=== PATIENT | female | born 1970 | race Caucasian/White ===

== ENCOUNTER → 2018-05-15 13:45 | Outpatient (CLI) | payer SELFPAY ==
--- NOTE | 2018-05-15 13:30 | EMB_PTH ---
PATIENT: BLANCA BURDEN LOC: [facility] U#:[id number] AGE/SX: 55/F ROOM: RE05/15/[address]: Dr. Nader Finley MD : 1970 BED: DIS: SPEC #: [id number] RECD: 05/15/18 13:54 STATUS: ALVARO CACERESMarcella #: [id number] DREW: 05/15/18 13:[address]: Nader Finley DEPT: SURGICAL PATHOLOGY RECD BY: Elsa Sam Tissues: Endometrium, NOS Procedures: Surgery Specimen Level IV HEADER OPERATION: Endometrial biopsy PRE-OP DIAGNOSIS: N92.0 TISSUE SUBMITTED: Endometrial biopsy MICROSCOPIC DIAGNOSIS Endometrial biopsy: Complex endometrial hyperplasia with minimal atypia. See comment. CANDIDA:miya 05/16/18 COMMENT Focal morular metaplasia is also noted. Clinical correlation and appropriate follow up are necessary. This case is discussed with Dr. Finley on 05/16/18. Case has been reviewed in consultation with Dr. Vang who concurs with the above diagnosis. IDC:AM MICROSCOPIC DESCRIPTION Slides are reviewed. GROSS DESCRIPTION Received in fixative is one container labeled with the patient's name and designated EMB. The specimen consists of multiple fragments of hemorrhagic soft tissue mixed with blood clot that in aggregate measure 5 x 3 x 0.3 cm. The entire specimen is submitted in two cassettes. / SJ:miya 05/15/18 TC:5 CPT: 03059
== END ==
PROVIDERS: Visit Provider Obstetrics & Gynecology
DX: N92.0 Excessive and frequent menstruation with regular cycle (principal)
CPT/HCPCS: 88305

== ENCOUNTER 2018-05-20 10:23 | Inpatient (IN) | payer SELFPAY ==
[2018-05-15 16:36] LABS: Hematocrit 37.3 % (37-47); Hemoglobin 12.9 g/dl (12.0-15.0); Mean Corp Hgb Conc 34.6 g/gl (32-36); Mean Corpuscular Volume 89.7 fL (81-99); Mean Platelet Vol. 10.2 fl (6.2-12.0); Platelet Count 311 K/mm3 (150-450); RBC Distribution Width SD 42.1 fl (35.1-43.9); Red Blood Count 4.16 M/mm3 (4.2-5.4); White Blood Count 9.3 K/mm3 (4.4-11.0)
[2018-05-15 16:41] LABS: Scan Indicated on CBC? Y/N NO
[2018-05-15 16:42] LABS: Prothrombin Time (Protime)PT. 13.5 SECONDS (11.7-14.9)
[2018-05-15 16:58] LABS: Partial Thromboplast Time 30.8 Seconds (24.1-36.2)
[2018-05-15 17:21] LABS: Creatinine, Serum 0.89 mg/dL (0.55-1.02); EST Glomerular Filtration Rate 72 mL/min (>60); Est Glom Filt Rate - Afr Amer 88 mL/min (>60)
--- NOTE | 2018-05-19 19:23 | HP.PCM_ITS ---
History and Physical Date of Admission: 05/20/18 Surgical History and Physical Judy Simpson, a 48 year old female 3 0 0 1 3, presents for ANUP/BS on May 20, 2018 at 12:15. -- Extremely Heavy Menses; Daily Bleeding for 1 Year; Complex EM Hyperplasia with minimal Atypia -- Judy presents here today with spouse(Nader) as referral from Dr. Christ Mckenzie for heavy bleeding with clots and cramping. 48 y.o. G 2 P 3 non-smoker with history in the last year of having some type of bleeding everyday, then would start with heavy flow, clots and cramping at times that she thinks is my period. Heavy Bleeding which began Started Saturday 05/12. Judy claims it started suddenly and has been present 4 months. It occurs with menses. It is located in the vagina.; It is located in the lower abdomen. Judy characterizes the quality cramping.; Judy characterizes the quality Clots, heavy flow. Severity is moderate and not improving; Associated signs and symptoms are has been bleeding for about a year almost daily. Additional comments are: Referred by Dr. Christ Mckenzie.; Additional comments are: u/s shows 9 cm submucous fibroid; EMBx pending. MEDICATIONS HISTORY: ALLERGIES: No Known Allergies Infections - Chicken pox and Measles Illnesses - no serious past illnesses Accidents - None Hospitalizations - see surgery Review of Systems: GENERAL - Denies fever, or chills SKIN - Denies skin changes EYES - Denies visual changes EARS - Denies difficulty hearing NOSE - Denies nasal congestion or bleeding MOUTH - Denies sore throat or difficulty swallowing NECK - Denies pain or swelling RESPIRATORY - Denies shortness of breath or wheezing CARDIOVASCULAR - Denies palpitations or chest pain GASTROINTESTINAL - Denies nausea, vomiting, diarrhea, constipation GENITOURINARY - Denies dysuria, frequency of urination, incontinence of urine MUSCULOSKELETAL - Denies joint or muscle pain NEUROLOGICAL - Denies localized numbness or weakness PSYCHIATRIC - Denies depression or anxiety ENDOCRINE - Denies heat or cold intolerance, weight loss or gain HEMATO-IMMUNOLOGIC - Denies excesive bleeding with cuts SOCIAL HISTORY: Alcohol Use - None Smoking - Never Diet - no special diet Lifestyle - moderate stress lifestyle and Exercise - active work Seat Belt Use - occasional Employer - Financial Sales Professional Illicit Drug Use - None Sexual Activity - Spouse-Sig Other Name - Nader Simpson Spouse-Sig Other Occupation - Self-Employed --Draw Maker Children Name(s) - 3 children(including set of twins) Control - Natural Family Planning FAMILY HISTORY: MENSTRUAL HISTORY: LMP Known?- DefiniteAmount/Duration - excess amount, Regularity - Irregular, Frequency - variable days, LMP - 05/12/18, Age Onset Menarche - 17 PAST PREGNANCIES: Total Pregnancies - 2; Full Term Pregnancies - 3; Premature - 0; Abortions, Induced - 0; Abortions, Spontaneous - 0; Ectopics - 0; Multiple Births - 1; Living Children - 3 SURGICAL HISTORY: 1. 05/14/1993 ; Joel Simpson MD - 2. 11/13/1996 ; Joel Simpson MD - 3. 2002 (L) Foot Surgery ; Dr. Munguia - PHYSICAL EXAM BP- 158/94 Sitting, Right arm, large cuff Weight- 254.06888 lbs Height- 65 inch BMI:42.36 CONSTITUTIONAL - NAD, well nourished, and well developed SKIN - No rash, lesions, or ulcers HEENT - Normocephalic, PERRLA, EOMI NECK - No nodes, no nuchal rigidity and thyroid normal size and texture LYMPH NODES - Palpation of lymph nodes in neck and groins within normal limits LUNGS - CTA x2 without wheezes, crackles or rales CARDIAC - Regular rate and rhythm without rubs, murmurs, or gallops BREAST - No dominant masses, no tenderness, no axillary adenopathy, no nipple discharge, no skin changes ABDOMEN - Without hepatosplenomegaly, distention, masses, rebound, or guarding; normal bowel sounds; no hernias EXTREMITIES - No edema or calf tenderness NEUROLOGICAL - Cranial nerves II-XII grossly intact PSYCHIATRIC - A and O to time, place, person, mood and affect External Genitial Vagina - non-tender without lesions Urethra/Urethral Meatus - non-tender Bladder - non-tender Vagina - vaginal paula are pink and moist without loss of rugae and no evidence of atropy and blood in vagina Cervix - without cervical motion tenderness and has normal size and features without evident lesions Uterus - enlarged uterus 15 wks and greater Adnexa - clear without massess or tenderness ASSESSMENT/PLAN: 1. Menorrhagia and Submucous Leiomyoma Of Uterus; Complex EM Hyperplasia with minimal atypia U/S shows large submucous fibroid. Aygestin taper to curb bleeding. Discussed options for treatment and patient desires we proceed with ANUP/BS. Discussed RBAs and all questions answered.
[2018-05-20] VITALS (11 sets, daily range): BP systolic 92–137; BP diastolic 49–78; PULSE 57–86; RESP 16; TEMP 36.6–37.1; O2SAT 16–100; BMI 41.8
--- NOTE | 2018-05-20 | IMM_PTH ---
PATIENT: BLANCA BURDEN LOC: [facility] U#:[id number] AGE/SX: 48/F ROOM: [facility] [id number] RE05/20/[address]: Dr. Nader Finley MD : 1970 BED: 1 DIS: 05/22/2018 SPEC #: [id number] RECD: 05/23/18 14:03 STATUS: ALVARO REQ #: [id number] DREW: 05/20/18 00:[address]: Nader Finley DEPT: IMMUNOHISTOCHEMISTRY RECD BY: Elsa Sam ENTERED: 05/23/18 14:07 SP TYPE: IMMUNO OTHR DR: Dr. Christ Mckenzie MD Tissues: Uterus, NOS Procedures: MSH2 (add) MLH-1 (add) MSH6 (add) Anti-PMS2 (add) CA-125 (add) CEA (add) CK19 (add) CK20 (add) CK7 (add) CK8 (add) ARIANNA (add) KI-67 (add) P53 (add) CA (add) Vimentin (add) 34BE12 (add) Pankeratin (add) ER (initial) PHYSICIAN & [place] [phone] SPECIMEN INFORMATION: Tissue Source: B. Uterus, cervix, bilateral fallopian tubes, bilateral ovaries Clinical Info: Adenocarcinoma Specimen Number: [id number] CPT code: 11116, 33294 x17 METHODOLOGY: Deparaffinized sections of prefer/formalin-fixed tissue or PAP/DQ stained slides are incubated with monoclonal/polyclonal antibodies/oligonucleotide probes. Localization is made via biotin free immunoperoxidase method. Appropriate controls are performed and reacted as expected. Results on target cell population are indicated in the following table: RESULTS: ANTIBODY / CLONE RESULT Block B20 ER (6F11) positive, rare CA (1E2) positive AE1-3 (AE1/AE3/PCK26) positive CK7 (OV-TL12/30) negative CK8 (96hfkhB90) positive CK20 (KS20.8) negative 34BE12 (34BE12) positive, focal Vimentin (V9) positive, dim CK19 (A53-B/A2.26) positive Ki-67 (30-9) positive, low CEA (11-7/TF-3HB-1) negative ARIANNA (E29) positive P53 (DO-7) negative MLH1 (M1) positive MSH2 (25D12) positive, dim MSH6 (44) positive, variable PMS2 (WUL5050) positive CA125 (OC125) positive, focal These tests were developed and their performance characteristics determined by [facility]. They may not have been cleared or approved by the U.S. Food and Drug Administration. The FDA has determined that such clearance or approval is not necessary. INTERPRETATION: Uterus, hysterectomy: Endometrial adenocarcinoma, endometrioid type, FIGO grade I/III. Result of Microsatellite Instability Study: Negative (no loss of mismatch protein; no microsatellite instability detected). AM:miya 06/04/18 AM:miya 06/07/18 Case has been reviewed in consultation with Dr. Leavitt who concurs with the above diagnosis. IDC:SJ
--- NOTE | 2018-05-20 | IMM_PTH ---
PATIENT: BLANCA BURDEN LOC: MS2 U#:[id number] AGE/SX: 48/F [place] [facility] [id number] RE05/20/[address]: Dr. Nader Finley MD : 1970 BED: 1 DIS: 05/22/2018 SPEC #: [id number] RECD: 05/23/18 14:03 STATUS: ALVARO REQ #: [id number] DREW: 05/20/18 00:[address]: Nader Finley DEPT: IMMUNOHISTOCHEMISTRY RECD BY: Elsa Sam ENTERED: 05/23/18 14:07 SP TYPE: IMMUNO OTHR DR: Dr. Christ Mckenzie MD Tissues: Uterus, NOS Procedures: MSH2 (add) MLH-1 (add) MSH6 (add) Anti-PMS2 (add) CA-125 (add) CEA (add) CK19 (add) CK20 (add) CK7 (add) CK8 (add) ARIANNA (add) KI-67 (add) P53 (add) WI (add) Vimentin (add) 34BE12 (add) Pankeratin (add) ER (initial) PHYSICIAN & [place] [phone] SPECIMEN INFORMATION: Tissue Source: B. Uterus, cervix, bilateral fallopian tubes, bilateral ovaries Clinical Info: Adenocarcinoma Specimen Number: [id number] CPT code: 31357, 53530 x17 METHODOLOGY: Deparaffinized sections of prefer/formalin-fixed tissue or PAP/DQ stained slides are incubated with monoclonal/polyclonal antibodies/oligonucleotide probes. Localization is made via biotin free immunoperoxidase method. Appropriate controls are performed and reacted as expected. Results on target cell population are indicated in the following table: RESULTS: ANTIBODY / CLONE RESULT Block B20 ER (6F11) positive, rare WI (1E2) positive AE1-3 (AE1/AE3/PCK26) positive CK7 (OV-TL12/30) negative CK8 (88spxvQ30) positive CK20 (KS20.8) negative 34BE12 (34BE12) positive, focal Vimentin (V9) positive, dim CK19 (A53-B/A2.26) positive Ki-67 (30-9) positive, low CEA (11-7/TF-3HB-1) negative ARIANNA (E29) positive P53 (DO-7) negative MLH1 (M1) positive MSH2 (25D12) positive, dim MSH6 (44) positive, variable PMS2 (BJY2247) positive CA125 (OC125) positive, focal These tests were developed and their performance characteristics determined by [facility]. They may not have been cleared or approved by the U.S. Food and Drug Administration. The FDA has determined that such clearance or approval is not necessary. INTERPRETATION: Uterus, hysterectomy: Endometrial adenocarcinoma, endometrioid type, FIGO grade I/III. Result of Microsatellite Instability Study: Negative (no loss of mismatch protein; no microsatellite instability detected). Positive (loss of mismatch protein; microsatellite instability detected). Partial loss of MLH1, MSH2, MSH6 and PMS2. Complete loss of MLH1, MSH2, MSH6 and PMS2. AM:miya 06/04/18 Case has been reviewed in consultation with Dr. Leavitt who concurs with the above diagnosis. IDC:SJ
[2018-05-20 10:54] LABS: Internal QC Validated? YES +Cl - CLEAR BKGD; Pregnancy, Urine Negative Negative
[2018-05-20] MEDS: Acetaminophen 500 MG Tablet 1000 MG PO (11:11)
[2018-05-20] MEDS: Scopolamine 1mg/72hr Patch 1 PATCH TRANSDERM. (11:12)
[2018-05-20] MEDS: Gabapentin 600 MG Tablet PO (11:12)
[2018-05-20 11:30] LABS: Bedside Glucose 98 mg/dL (70-110)
[2018-05-20] MEDS: Ondansetron 4 MG/2 ML Vial IV ×2 (12:15→21:14)
--- NOTE | 2018-05-20 14:25 | PCM.OP.BLANK ---
Operative Report Date of Procedure: 05/20/18 Surgeon: Nader Finley MD, FACOG Seed Technician: WADE Rojas; WADE Saul Anesthesia: Andrea Wagnre CRNA Type of Anesthesia: General endotracheal Procedure: Total Abdominal Hysterectomy, Bilateral Salpingo-Oophorectomy Findings: 15 cm cm fibroid uterus with normal appearing fallopian tubes and ovaries; two 3 x 4 cm extra uterine polypoid structures protruding from the left posterior aspect of the cervix into the peritoneal cavity with frozen section diagnosis being endometrial polyps with hyperplasia; left ovary densely adhered the posterior aspect of uterus; powder olmos across the posterior aspect of the uterus suggestive of endometriosis; normal palpating aortic lymph nodes and normal abdomen otherwise. Indications: This is a 48-year-old patient who his been having problems with bleeding nearly every day for the last year. Endometrial biopsy recently showed complex endometrial hyperplasia with minimal atypia. Recent ultrasound also showed a 9 cm fibroid. Given this the patient desires that we proceed with the above procedure. She has been counseled regarding the risk and indications of this procedure including the possibility of bleeding, infection, and injury to surrounding structures such as bowel bladder. All questions were answered. Procedure: Patient was taken to the operating room where after induction of general anesthesia she was prepped and draped in the usual sterile fashion. A Walton catheter was placed. The abdomen was entered through a Pfannenstiel incision and peritoneal cavity was entered bluntly. We were unable to place a Fairplay retractor at this point. Infundibulopelvic ligaments were ligated x2 on the left and utero-ovarian vessels on the right. A bladder flap was developed and progressive bites were then taken down on either side of the uterine cervix ligating each pedicle with 0 Vicryl suture. Final bites across the vaginal cuff incorporated the uterosacral ligaments into the vaginal cuff using 0 Vicryl suture and two ybjlda-[id number] sutures were placed across the vaginal cuff. Vaginal cuff and pelvic sidewall pedicles were oversewn where necessary to achieve hemostasis. The right infundibulopelvic ligament was then ligated with 0 Vicryl suture x2. Peristalsis of the right ureter was noted. Pelvis was copiously irrigated removing all clot. Fairplay retractor was removed and rectus abdominis muscles were reapproximated in the midline with interrupted 0 Vicryl suture. 0 PDS strata fix was used to close the fascia in a running fashion and subcutaneous tissue was copiously irrigated with saline solution before closing with 3-0 Vicryl suture. 3-0 Monocryl suture was then used in running fashion to reapproximate skin edges area and Steri-Strips placed across the incision. Patient tolerated the procedure well was taken to recovery room in satisfactory condition; sponge instrument and needle counts were all reportedly correct. Estimated blood loss for the case was approximately 200 cc. Cefotan 2 g IV was given prior to beginning the operative procedure. There were no apparent complications of the surgery. Specimen to pathology was uterus and bilateral fallopian tubes and ovaries. Frozen section diagnosis showed extrauterine polyp with hyperplasia.
--- NOTE | 2018-05-20 14:28 | OP.PCM_ITS ---
Operative Report Date of Procedure: 05/20/18 Surgeon: Nader Finley MD, FACOG Chemist Internship: WADE Rojas; WADE Saul Anesthesia: Andrea Wagner CRNA Type of Anesthesia: General endotracheal Procedure: Total Abdominal Hysterectomy, Bilateral Salpingo-Oophorectomy Findings: 15 cm cm fibroid uterus with normal appearing fallopian tubes and ovaries; two 3 x 4 cm extra uterine polypoid structures protruding from the left posterior aspect of the cervix into the peritoneal cavity with frozen section diagnosis being endometrial polyps with hyperplasia; left ovary densely adhered the posterior aspect of uterus; powder olmos across the posterior aspect of the uterus suggestive of endometriosis; normal palpating aortic lymph nodes and normal abdomen otherwise. Indications: This is a 48-year-old patient who his been having problems with bleeding nearly every day for the last year. Endometrial biopsy recently showed complex endometrial hyperplasia with minimal atypia. Recent ultrasound also showed a 9 cm fibroid. Given this the patient desires that we proceed with the above procedure. She has been counseled regarding the risk and indications of this procedure including the possibility of bleeding, infection, and injury to surrounding structures such as bowel bladder. All questions were answered. Procedure: Patient was taken to the operating room where after induction of general anesthesia she was prepped and draped in the usual sterile fashion. A Walton catheter was placed. The abdomen was entered through a Pfannenstiel incision and peritoneal cavity was entered bluntly. We were unable to place a Hospers retractor at this point. Infundibulopelvic ligaments were ligated x2 on the left and utero- ovarian vessels on the right. A bladder flap was developed and progressive bites were then taken down on either side of the uterine cervix ligating each pedicle with 0 Vicryl suture. Final bites across the vaginal cuff incorporated the uterosacral ligaments into the vaginal cuff using 0 Vicryl suture and two prbgbx-[id number] sutures were placed across the vaginal cuff. Vaginal cuff and pelvic sidewall pedicles were oversewn where necessary to achieve hemostasis. The right infundibulopelvic ligament was then ligated with 0 Vicryl suture x2. Peristalsis of the right ureter was noted. Pelvis was copiously irrigated removing all clot. Hospers retractor was removed and rectus abdominis muscles were reapproximated in the midline with interrupted 0 Vicryl suture. 0 PDS strata fix was used to close the fascia in a running fashion and subcutaneous tissue was copiously irrigated with saline solution before closing with 3-0 Vicryl suture. 3-0 Monocryl suture was then used in running fashion to reapproximate skin edges area and Steri-Strips placed across the incision. Patient tolerated the procedure well was taken to recovery room in satisfactory condition; sponge instrument and needle counts were all reportedly correct. Estimated blood loss for the case was approximately 200 cc. Cefotan 2 g IV was given prior to beginning the operative procedure. There were no apparent com plications of the surgery. Specimen to pathology was uterus and bilateral fallopian tubes and ovaries. Frozen section diagnosis showed extrauterine polyp with hyperplasia.
--- NOTE | 2018-05-20 14:29 | DCINST_ITS ---
Discharge Diet: No Restrictions Discharge Activity: Return to Normal Activity - do what you feel comfortable, but do not over do it. You may climb stairs, just use caution and hold the railing., May Not Drive - for a few days or while taking narcotic pain medications., May Shower, May Take a Tub Bath May resume sexual activity in: 6 weeks - nothing in the vagina. Lifting Restrictions: 25 pounds for 6 weeks. Call your doctor if your incision/area has: Continuous Slow Oozing, Sudden Increased Bleeding, Increased Pain/ Swelling, Increased Redness, Foul Smelling Discharge Call your doctor if you observe: Fever of 101 or Higher, Inability to urinate, Inability to have a bowel movement, Using more than one pad per hour, - - Some vaginal bleeding may be noted for up to 4-8 weeks. Cleanse incision/area with: - - Let the soapy water run over your incision, rinse and pat dry. Additional Dressing/Incision Instructions:: The white strips (Steri Strips) on your incision will fall off on their own. Allergies/Adverse Reactions: Allergies No Known Allergies Allergy (Verified 05/16/18 12:48) Medications to take at Discharge Ferrous Sulfate [Iron] 325 mg PO DAILY 05/16/18 Multivitamin [Multiple Vitamins] 1 each PO DAILY 05/16/18 Norethindrone Acetate 10 mg PO DAILY 05/16/18 Docusate Sodium [Colace] 100 mg PO BID PRN PRN #60 cap 05/20/18 Estradiol 1 mg PO DAILY #100 tab 05/20/18 Oxycodone [Oxyir] 5 mg PO Q6H PRN PRN 7 Days #20 tab 05/20/18 The following prescriptions were given: Oxycodone [Oxyir] 5 mg PO Q6H PRN PRN 7 Days #20 tab PRN Reason: Severe Pain (-04/17) Docusate Sodium [Colace] 100 mg PO BID PRN PRN #60 cap PRN Reason: Constipation Estradiol 1 mg PO DAILY #100 tab Primary Care Physician: Christ Mckenzie [Primary Care Provider] - Test Results: Test results from this visit will be discussed in further detail at your follow- up appointment, if applicable. Please Follow Up With: Nader Finley MD - [phone] When: in 2 weeks, please call to make an appointment.
[2018-05-20] MEDS: Lidocaine/D5W 2,000 MG/250 ML IV.SOLN 34.23 MG IV (14:48)
--- NOTE | 2018-05-20 15:08 | HYST_PTH ---
PATIENT: BLANCA BURDEN LOC: MS2 U#:[id number] AGE/SX: 48/F ROOM: [facility] [place] RE05/20/[address]: Dr. Nader Finley MD : 1970 BED: 1 DIS: 05/22/2018 SPEC #: [id number] RECD: 05/20/18 15:12 STATUS: ALVARO JAHAIRA #: [id number] DREW: 05/20/18 15:[address]: Nader Finley DEPT: SURGICAL PATHOLOGY RECD BY: Elsa Sam ENTERED: 05/20/18 15:37 SP TYPE: HYSTERECT OTHR DR: Dr. Christ Mckenzie MD Tissues: A - Uterus, NOS B - Uterus, NOS Procedures: Frozen Section (charge) Frozen Section Add'l ([facility]) Surgery Specimen Level IV Surgery Specimen Level Frozen (no charge) HEADER OPERATION: Total abdominal hysterectomy, bilateral salpingo-oophorectomy PRE-OP DIAGNOSIS: Menorrhagia and submucous leiomyoma of uterus; complex EM hyperplasia with minimal atypia TISSUE SUBMITTED: A. Posterior uterine growth FS, B. Uterus, cervix, bilateral fallopian tubes, bilateral ovaries FROZEN SECTION DIAGNOSIS A. Posterior uterine growth, biopsy: Consistent with endometrial polyp with hyperplasia without atypia. SJ:cc 05/20/18 MICROSCOPIC DIAGNOSIS A. Posterior uterine growth, biopsy: Endometrial polyp with complex endometrial hyperplasia without atypia. B. Uterus, hysterectomy: Endometrial adenocarcinoma, endometrioid type, FIGO I, with myometrial invasion. AM:miya 06/04/18 COMMENT UTERINE CANCER SUMMARY: Specimen - uterine corpus Procedure - radical hysterectomy Lymph node sampling - not performed Specimen integrity - intact specimen Tumor site - involves entire endometrial surface. Tumor size - 12 x 9 x 2.5 cm Histologic type - endometrioid adenocarcinoma Histologic grade - FIGO grade I Myometrial invasion - present (>50% of myometrial invasion) Involvement of cervix - not involved Extent of involvement of other organs: Right ovary - not involved Left ovary - not involved Right fallopian tube - not involved Left fallopian tube - not involved Margins - uninvolved by invasive carcinoma. Lymph-Vascular invasion - not identified Lymph nodes - not submitted Periaortic lymph nodes - not submitted Additional pathologic findings - right and left ovary with serous cystadenofibromas. Ancillary studies - Immunohistochemistry ([id number]) PATHOLOGIC STAGE: pT1b Nx Mx The above summary is in compliance with [employer] [place] (CAP) Cancer Protocols Checklist and [place] [employer] on Cancer (AJCC), Staging Manual, 8th Ed. This case was seen in consultation with Dr. Cervantes of [employer]. Case has been reviewed in consultation with Dr. Leavitt who concurs with the above diagnosis. IDC:CANDIDA MICROSCOPIC DESCRIPTION Slides are reviewed. GROSS DESCRIPTION A. Received in fixative is one container labeled with the patient's name and designated posterior uterine growth. Received fresh for frozen section diagnosis is a triangular polypoid piece of couch pink tissue measuring 4.5 x 3 x 1 cm. Sections reveal focally cystic cut surfaces. No obvious well-defined mass is identified. Two sections are submitted for frozen section diagnosis. The entire specimen is submitted in five cassettes as follows: 1&2 - frozen section, 3 to 5 - rest of the specimen. SJ:wesley 05/20/18 B. Received in fixative is one container labeled with the patient's name and designated uterus, cervix and fallopian tubes. The specimen consists of a uterus with right and left fallopian tubes. The uterus with cervix measures 18 x 15 x 10 cm and weighs 953 gm. The ectocervix is unremarkable and the cervical os is oval in contour. The endocervical canal measures 5 cm in length and is grossly unremarkable. The entire endometrial surface is irregular, granular and friable and measures 12 x 9 cm. Serial sections through this friable surface reveals the process to continue into the myometrium (greater than 2/3 thickness of myometrial extension). The serosal aspect of the specimen is smooth and glistening. No disruption of the serosal surface is grossly identified. A small hole-like area is present in the fundus of the gland measuring 1 cm in greatest dimension. Serial sections through this hole do not reveal extension into the endometrial surface. The appearance of the involvement of endometrium and myometrium resembles a friable mass that is light couch-white in color. This process is located approximately 6.5 cm from the ectocervical margin. The right ovary is light couch, smooth and glistening and cystic and measures 4.8 x 3.5 x 2.6 cm. The adjacent fallopian tube measures 7 cm in length and 0.7 cm in average diameter and focally displays adhesion to the myometrium. The left crinkled ovary is partly cystic and measures 3.5 x 2.5 x 2.2 cm. The adjacent left fallopian tube measures 5.5 cm in length and 0.7 cm in average diameter. Serial sections of the right cystic ovary reveal clear fluid. The cyst wall averages 0.1 cm in thickness. The fimbrial ends of both fallopian tubes are grossly unremarkable and elongated fibrous tissue is attached to the serosal surface in its posterior portion measuring 5 x 0.5 x 0.5 cm and grossly resembles area of fibrous adhesion. The serosal surface of the uterus is inked. Fluoroscope Operator sections are submitted as follows: 1 - anterior cervix, 2 - posterior cervix, 3 through 6 - right ovary and fallopian tube, 7 through 9 - left fallopian tube and ovary, 10 through 15 - anterior endometrium/myometrium, 18 through 21 - posterior endometrium/myometrium. / AM:sp 05/22/18 TC:0 CPT: 30907, 65211, 71463, 39674
[2018-05-20] MEDS: Dextrose 5%-Lactated Ringers 1,000 ML 150 ML IV (20:02)
[2018-05-20] MEDS: Enoxaparin 30 MG/0.3 ML Syringe SC (20:02)
[2018-05-20] MEDS: HYDROmorphone 1 MG/ML Syringe IV (21:14)
--- NOTE | 2018-05-21 00:01 | NURSING ---
Pt c/o double vision. requesting to have scope patch removed. scope patched removed from behind left ear and thrown away in sharps container. will continue to monitor pt's double vision.
[2018-05-21] MEDS: 0.9% NaCl Peripheral Flush Adult/Peds IV ×5 (00:06→22:51)
[2018-05-21] MEDS: Ketorolac 30 MG/ML Syringe IV ×3 (00:06→12:54)
[2018-05-21] MEDS: Dextrose 5%-Lactated Ringers 1,000 ML 150 ML IV (02:19)
[2018-05-21 03:38] VITALS: BP 113/54; PULSE 75; RESP 18; TEMP 37.1; O2SAT 96
[2018-05-21 05:48] LABS: Hematocrit 29.8 % (37-47); Hemoglobin 9.8 g/dl (12.0-15.0); Mean Corp Hgb Conc 32.9 g/gl (32-36); Mean Corpuscular Hgb 30.8 pg (27.0-32.0); Mean Corpuscular Volume 93.7 fL (81-99); Mean Platelet Vol. 9.3 fl (6.2-12.0); Platelet Count 303 K/mm3 (150-450); RBC Distribution Width CV 14.1 % (11.6-14.6); RBC Distribution Width SD 45.6 fl (35.1-43.9); Red Blood Count 3.18 M/mm3 (4.2-5.4)
[2018-05-21 05:53] LABS: Scan Indicated on CBC? Y/N NO
[2018-05-21 06:23] LABS: Creatinine, Serum 0.86 mg/dL (0.55-1.02); EST Glomerular Filtration Rate 75 mL/min (>60); Est Glom Filt Rate - Afr Amer 91 mL/min (>60); Estimated Creatinine Clearance 72.77 ml/min
--- NOTE | 2018-05-21 08:33 | PCM.PN.OB ---
Subjective: Patient without complaints. Tolerating diet well. Minimal vaginal bleeding. Pain well controlled. Denies flatus. Reports history of superficial calf clot formation after in the past. - Physical Exam Vital Signs AF, VSS Temp Pulse Resp BP Pulse Ox 98.8 F 75 18 113/54 L 96 05/21/18 03:38 05/21/18 03:38 05/21/18 03:38 05/21/18 03:38 05/21/18 03:38 Oxygen Flow Rate (L/min) 3 Oxygen Delivery Method Room Air Weight: 251 lb 8.759 oz Body Mass Index (BMI) 41.8 Intake and Output for Last 24 Hours 05/19/18 05/20/18 05/21/18 23:59 23:59 23:59 Intake Total 2461 / 2461 1437 / 1437 Output Total 475 / 475 575 / 575 Balance 1985 862 / 862 Laboratory Tests Past 24 Hrs 05/20/18 05/21/18 05/21/18 10:46 05:10 05:10 WBC 8.0 RBC 3.18 L Hgb 9.8 L Hct 29.8 L MCV 93.7 MCH 30.8 MCHC 32.9 RDW 14.1 RDW Differential 45.6 H Plt Count 303 MPV 9.3 Creatinine 0.86 Estim Creat Clear Calc 72.77 Est GFR (MDRD) Af Amer 91 Est GFR (MDRD) Non-Af 75 Urine Test Negative POC Glucose 05/20/18 11:06 POC Glucose 98 Wound is clean, dry, intact. Good urine output. Hemoglobin okay. Creatinine okay. Medical Necessity - Tobacco Use Smoking Status: Never smoker Tobacco Use: Cigarettes Assessment/Plan Doing well postoperative day #1 status post ANUP/BSO. Will start prophylactic Lovenox until able to ambulate very well. Anticipate release to home tomorrow.
[2018-05-21 08:52] VITALS: BP 135/86; PULSE 66; RESP 18; TEMP 37.2; O2SAT 98
[2018-05-21] MEDS: Estrogens,Conj. 0.625 MG Tablet PO (08:59)
[2018-05-21] MEDS: Enoxaparin 30 MG/0.3 ML Syringe SC (09:11)
[2018-05-21 10:10] VITALS: O2SAT 96
--- NOTE | 2018-05-21 10:15 | CASEMGMT ---
RN TIFFANY Face to Face with patient for initial transition planning/care coordination assessment. RN CM introduced self and role at [facility]. Patient sitting in chair, alert and oriented, at bedside. Patient willing to participate in assessment and is able to answer all questions appropriately. Care providers, pharmacy, and demographics verified. Patient wishes to discharge home, denies need for home health at this time. Patient states she has no further needs or concerns at this time. CM to follow for discharge planning needs that may arise. PCP: Christ Mckenzie Specialists: None Preferred Pharmacy: [facility] Insurance: [employer] Prescription Benefit: None Living Will/HPOA: None LNOK: Living Arrangements: Patient lives with in 2 story home. Transportation: yes, tow car driver DME/HHC: None Disposition Plan: Patient to discharge home with family support and follow-up plans in place. Lesly SPENCE, RN, CM
[2018-05-21 13:55] VITALS: BP 132/73; PULSE 69; RESP 18; TEMP 36.9; O2SAT 94
[2018-05-21] MEDS: Ketorolac 10 MG Tablet PO ×2 (17:27→22:51)
[2018-05-21 19:27] VITALS: BP 141/65; PULSE 73; RESP 16; TEMP 37.2; O2SAT 95
[2018-05-21] MEDS: Ondansetron 4 MG/2 ML Vial IV (22:51)
[2018-05-22] MEDS: Acetaminophen 500 MG Tablet 1000 MG PO (02:01)
[2018-05-22 02:04] VITALS: BP 114/64; PULSE 74; RESP 18; TEMP 37.2; O2SAT 94
[2018-05-22] MEDS: Ketorolac 10 MG Tablet PO (05:58)
[2018-05-22 07:10] VITALS: O2SAT 91
[2018-05-22] MEDS: Estrogens,Conj. 0.625 MG Tablet PO (08:13)
[2018-05-22] MEDS: Enoxaparin 30 MG/0.3 ML Syringe SC (08:14)
[2018-05-22 08:15] VITALS: BP 124/65; PULSE 80; RESP 16; TEMP 36.6; O2SAT 97
--- NOTE | 2018-05-22 08:51 | PCM.PN.OB ---
Subjective: Patient without complaints. Tolerating diet well. Positive flatus. Ambulating very well. Ready to go home. - Physical Exam Vital Signs Temp Pulse Resp BP Pulse Ox 97.9 F 80 16 124/65 H 97 05/22/18 08:15 05/22/18 08:15 05/22/18 08:15 05/22/18 08:15 05/22/18 08:15 Oxygen Flow Rate (L/min) 2 Oxygen Delivery Method Room Air Weight: 251 lb 8.759 oz Body Mass Index (BMI) 41.8 Intake and Output for Last 24 Hours 05/20/18 05/21/18 05/22/18 23:59 23:59 23:59 Intake Total 2461 / 2461 3087 / 3087 500 / 500 Output Total 475 / 475 575 / 575 Balance 1985 / 1985 2512 / 2512 500 / 500 Wound is clean, dry, intact. Good urine output. Medical Necessity - Tobacco Use Smoking Status: Never smoker Tobacco Use: Cigarettes Assessment/Plan Doing well status post ANUP/BSO on postoperative day #2. Will release to home with routine instructions.
--- NOTE | 2018-05-22 09:05 | PCA ---
pt walking in the [place]
== END 2018-05-22 11:13 | disposition home or self-care (01) | DRG 743 ==
LOC: ACINP 10:27 → MS2 19:11
PROVIDERS: Anesthesiology; Admitting Provider Obstetrics & Gynecology; Family Provider Family Medicine; PCP Family Medicine; Referring Provider Obstetrics & Gynecology; Visit Provider Obstetrics & Gynecology
PROC: 0UT90ZZ Resection of Uterus, Open Approach (ICD-10-PCS; principal; 2018-05-20 11:55)
DX: D25.0 Submucous leiomyoma of uterus (principal); N92.0 Excessive and frequent menstruation with regular cycle
CPT/HCPCS: 36415; 81025; 82565; 82962; 85027; 85610; 85730; 86850; 86900; 88305; 88307; 88309; 88331; 88332; 88341; 88342; J7050; J7120; A4216; J0330; J2405

== ENCOUNTER → 2018-06-10 07:12 | Outpatient (CLI) | payer SELFPAY ==
--- NOTE | 2018-06-10 07:25 | CT_ITS ---
STUDY: CT ABDOMEN AND PELVIS WITH CONTRAST REASON FOR EXAM: Female, 48 years old. Endometrial cancer RADIATION DOSAGE (If Supplied By Facility): CTDIvol = ( 23.48 ) mGy, DLP = ( 3527.32 ) mGycm TECHNIQUE: Transaxial images were obtained from the dome of the diaphragm to the symphysis pubis without oral contrast. 100CC ml of Isovue 300 contrast was administered. Sagittal and coronal images were reconstructed. Individualized dose optimization techniques were used for this CT. COMPARISON: None. FINDINGS: The visualized lung bases are unremarkable. The visualized portions of the heart are within normal limits. Liver is fatty. There is NO discrete mass. There is cholelithiasis. There is NO evidence of cholecystitis or biliary ductal dilatation. Normal spleen. The pancreas is unremarkable. However, there is a mass along the head of the pancreas on the RIGHT extending into the giuliana hepatis superiorly measuring 6 x 3 x 4.2 centers. This demonstrates heterogeneous density and enhancement. This could be an exophytic pancreatic neoplasm or metastatic lymph node. Normal bilateral adrenal glands. There is a heterogeneously enhancing mass in the midpole of the RIGHT kidney measuring 6.5 x 4.5 x 4.3 cm. This is suspicious for malignancy. Normal left kidney. Normal visualized stomach. Normal small intestine. Normal colon. There is non-visualization of the appendix. Normal abdominal aorta. Normal inferior vena cava. 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 Tumor thrombosis is not excluded. Normal urinary bladder. There has been a hysterectomy. There is NO pelvic mass or fluid collection. Normal abdominal wall. Normal osseous structures. CT/Abdomen/Pelvis WITH Contrast IMPRESSION: There is cholelithiasis. There is NO evidence of cholecystitis or biliary ductal dilatation. There is a mass along the head of the pancreas on the RIGHT extending into the giuliana hepatis superiorly measuring 6 x 3 x 4.2 centers. This demonstrates heterogeneous density and enhancement. This could be an exophytic pancreatic neoplasm or metastatic lymph node. There is a heterogeneously enhancing mass in the midpole of the RIGHT kidney measuring 6.5 x 4.5 x 4.3 cm. This is suspicious for malignancy. There is NO acute bowel abnormality. 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 Tumor thrombosis is not excluded. There has been a hysterectomy. There is NO pelvic mass or fluid collection. Electronically Signed: Brandin Hung MD at 6:26 EST , Service support ,
--- NOTE | 2018-06-10 07:25 | CT_ITS ---
STUDY: CT CHEST WITH CONTRAST REASON FOR EXAM: Female, 48 years old. Endometrial cancer RADIATION DOSAGE (If Supplied By Facility): CTDIvol = ( 23.48 ) mGy, DLP = ( 3527.32 ) mGycm TECHNIQUE: Transaxial imaging was performed following intravenous administration of 100CC ml of Isovue 300 contrast material. Individualized dose optimization techniques were used for this CT. COMPARISON: None. FINDINGS: The heart size is normal. There is NO pericardial effusion. There is NO mediastinal or hilar lymphadenopathy. There are filling defects in the LEFT basilar pulmonary artery branches suggesting chronic pulmonary embolism. NO acute occlusive thrombosis is seen. There is NO saddle embolus. The thoracic aorta is normal in caliber. There is NO aneurysm or dissection. The lungs are expanded. There are fibrotic changes at the LEFT lung base. There are NO infiltrates, effusions or pneumothoraces. NO discrete pulmonary nodules or masses are seen. The thoracic spine, sternum and ribs are intact. CT/Chest WITH Contrast IMPRESSION: The heart size is normal. There are filling defects in the LEFT basilar pulmonary artery branches suggesting chronic pulmonary embolism. NO acute occlusive thrombosis is seen. There is NO saddle embolus. The thoracic aorta is normal in caliber. There are fibrotic changes at the LEFT lung base. There are NO infiltrates, effusions or pneumothoraces. NO discrete pulmonary nodules or masses are seen. Electronically Signed: Brandin Hung MD at 7:11 EST , Service support ,
--- OUTSIDE RECORDS SUMMARY | 2018-08-03 05:57 | XMS RPT_ITS ---
:1970 Author Organization OHIP Care Team Providers Name Role Phone Rina Finley Attending Unavailable Rina Finley Admitting Unavailable Rina Finley Attending Unavailable Rina Finley Referring Unavailable Christ Mckenzie [facility] Unavailable Vickey Fisher Attending Unavailable Vickey Fisher Referring Unavailable Christ Mckenzie [facility] Unavailable Christ cMkenzie [facility] Unavailable Rodger Milligan Admitting Unavailable Rodger Milligan Attending Unavailable Harvey Mckenzie D[employer] Consulting Unavailable Rodger Milligan Admitting Unavailable Harvey Mckenzie D.O. Attending Unavailable Christ Mckenzie [facility] Care Unavailable Harvey Mckenzie D.O. Consulting Unavailable Rodger Milligan Consulting Unavailable Rodger Milligan Admitting Unavailable Rodger Milligan Attending Unavailable Christ Mckenzie [facility] Unavailable Harvey Mckenzie D.O. Consulting Unavailable Rodger Milligan Consulting Unavailable Rodger Milligan Admitting Unavailable Harvey Mckenzie D.O. Attending Unavailable Christ Mckenzie Primary [facility] Unavailable Harvey Mckenzie D.O. Consulting Unavailable Rodger Milligan Consulting Unavailable Rodger Milligan Admitting Unavailable Rodger Milligan Attending Unavailable Christ Mckenzie Primary Care Unavailable Harvey Mckenzie D.O. Consulting Unavailable Rodger Milligan Consulting Unavailable PROBLEMS PROBLEMS DATE TYPE CONDITION / CODE ATTENDING STATUS SOURCE 06/10/2018 Unknown C54.1 - Malignant Sudheer Fisher [facility] neoplasm of [facility] endometrium / Hospital C54.1(ICD-10) Repository 05/22/2018 Unknown G89.18 - Other acute Rina Finley Active [facility] postprocedural pain Community / G89.18(ICD-10) Hospital Repository 05/15/2018 Unknown N92.0 - Excessive Rina Finley Active [place] and frequent [facility] menstruation with Hospital regular cycle / Repository N92.0(ICD-10) PROCEDURES PROCEDURES No Procedure Records FoundRESULTS RESULTS DISCHARGE SUMMARY Observed: 06/14/2018 Status: F Source: [place] 9:02 [facility] REPOSITORY [facility] Medical Records Department [address] [place] [address] Discharge Summary 06/14/18 0854 MR#: [id number] Acct: [id number] Name: BLANCA BURDEN Rep #: [id number] : 1970 48 From: Rodger Milligan DO PCP: Christ Mckenzie MD Status: DIS IN Y Location: [place] [address] Discharge Date and Diagnosis Date of Admission: 06/12/18 Date of Discharge: 06/13/18 - Primary Discharge Diagnosis #1 acute pulmonary embolus left basilar pulmonary artery branches- probably secondary to either existing uterine carcinoma or new primary undiagnosed carcinoma, e.g. renal, pancreas #2 right renal mass, mid abdominal mass in the vicinity of the pancreas-possibly renal cell cancer or less likely pancreatic cancer #3 recently diagnosed uterine cancer Hospital Course and Treatment Operations: None Procedures: - - CT-guided needle biopsy of abdominal mass Summary of Care Provided: The patient is a 48 year old F who was seen in the emergency room at [facility] after being directed there by her oncological gynecological surgeon. Patient had a hysterectomy performed approximately 3 weeks prior and this showed uterine cancer, she was referred to an oncological gynecological surgeon in [place] who ordered a chest CT and abdominal CT on the patient on 06/10/18. This resulted as showing a pulmonary embolism in the left pulmonary basilar pulmonary artery as well as an abnormality on the patient's CT of her abdomen showing a right renal mass and a mass around the head of the pancreas. Patient was admitted from the emergency room to PCU after being bolused with IV heparin, she was maintained on a heparin drip on PCU and seen by pulmonary medicine who recommended using Lovenox as an outpatient for treatment of the pulmonary embolus. Patient underwent a needle biopsy of her abdominal mass near the pancreas and then was placed on Lovenox on 06/13/18. On 06/13/18, patient was seen and examined: On examination she appeared in good health and spirits. Vital signs as documented. Skin warm and dry and without overt rashes. Neck without JVD. Lungs clear. Heart exam notable for regular rhythm, normal sounds and absence of murmurs, rubs or gallops. Abdomen unremarkable and without evidence of organomegaly, masses, or abdominal aortic enlargement. Extremities nonedematous. Neuro: Cranial nerves II through XII are grossly intact, no focal motor deficits were noted. Psych: Patient is alert and oriented x3, she does not appear anxious or depressed. On 06/13/18, patient was seen and examined and felt to be stable for discharge home, she was to follow-up with her gynecological surgeon here in [place] and her PCP. - Physical Exam Vital Signs Temp Pulse Resp BP Pulse Ox 98.8 F 77 16 138/78 H 95 06/13/18 13:02 06/13/18 13:02 06/13/18 13:02 06/13/18 13:02 06/13/18 13:02 Oxygen Delivery Method [6] Room Air Oxygen Delivery Method [5] Room Air Oxygen Delivery Method [4] Room Air Oxygen Delivery Method [3] Room Air Oxygen Delivery Method [2] Room Air Oxygen Delivery Method [1 ( Room Air Initial Baseline)] Oxygen Delivery Method Room Air Weight: 108.3 kg Body Mass Index (BMI) 39.7 Intake and Output for Last 24 Hours Intake Total 1237 / 1237 447 / 447 Balance 1237 / 1237 447 / 447 Discharge Activity: Return to Normal Activity Weight Bearing Status: Full weight bearing Home Medications: Medications to take at Discharge Acetaminophen [Tylenol Tablet] 650 mg PO Q6H PRN PRN tablet 06/13/18 Enoxaparin [Lovenox] 110 mg SUBCUT BID #60 syringe 06/13/18 Following Prescrptions Were Given to Patient: Enoxaparin [Lovenox] 110 mg SUBCUT BID #60 syringe Primary Care Physician: Christ Mckenzie [Primary Care Provider] - Please follow up with your Primary Care Physician in: next week Please Follow Up With: Rina Finley MD When: in 10 days if you have not heard from him by then Disposition: Home Minutes spent on discharge:: 32 Patient Condition:: Stable Medical Necessity - Tobacco Use Smoking Status: Never smoker Tobacco Use: Non-smoker Meaningful Use Info Meaningful Use Diagnoses (Choose all that apply): VTE - VTE Anticoag overlap given w/in hospital stay or rx'd at co?: No Pt receive overlap for 5 days?: No Reason overlap not ordered, prescribed, or given for 5 days: Treatment Not Indicated - Patient was placed on Lovenox Code Visit Inpatient E AND M: 59605 Disch Hosp 06/14/18 0902 <Electronically signed by Rodger Milligan DO> Date Rodger Milligan DO Cosigner Signature (if applicable): Date CC: Rodger Milligan DO; Christ Mckenzie MD Signed DISCHARGE INSTRUCTION Observed: 06/13/2018 Status: F Source: [place] 2:31 PM [facility] [place] [facility] Medical Records Department [address] [place] [address] Instructions for Home/Discharge Instructions 06/13/18 1429 MR#: [id number] Acct: [id number] Name: BERTRAMBLANCA Khalif Rep #: [id number] : 1970 48 From: Rodger Milligan DO PCP: Christ Mckenzie MD Status: ADM IN - Discharge Diagnoses Current Active Problems: Current Active and Chronic Problems Pulmonary embolism (Acute) You will use the following diet at home:: No restrictions Your food should be the consistency of: Regular Your liquids should be the consistency of: Regular/Thin Discharge Activity: Return to Normal Activity Weight Bearing Status: Full weight bearing Additional Instructions: avoid using ibuprofen or Alleve-use tylenol for pain Allergies/Adverse Reactions: Allergies No Known Allergies Allergy (Verified 06/12/18 09:37) Medications to take at Discharge Acetaminophen [Tylenol Tablet] 650 mg PO Q6H PRN PRN tablet 06/13/18 Enoxaparin [Lovenox] 110 mg SUBCUT BID #60 syringe 06/13/18 The following prescriptions were given: Enoxaparin [Lovenox] 110 mg SUBCUT BID #60 syringe Primary Care Physician: Chirst Mckenzie [Primary Care Provider] - Please follow up with your Primary Care Physician in: next week Test Results: Test results from this visit will be discussed in further detail at your follow-up appointment, if applicable. Please Follow Up With: Rina Finley MD When: in 10 days if you have not heard from him by then 06/13/18 1431 <Electronically signed by Rodger Milligan DO> Date Rodger Milligan DO CC: Harvey Mckenzie D.O.; Christ Mckenzie MD ASP RADIOLOGY (TISSUE) Observed: 06/13/2018 Status: F Source: [place] 9:55 AM [facility] [place] Patient: BLANCA BURDEN : 1970 (48/F) Acct Num: [id number] Phys: Rodger Milligan DO Unit Num: [id number] Loc: PCU [id number] Specimen: [id number] Received: 06/13/18 - 1047 Spec Type: ASP RAD TISSUES 1 TISSUES: Pancreas, NOS COMMENT The specimen is evaluated at the time of CT-guided biopsy by Dr. Leavitt. Immediate Evaluation = Negative for definite malignant cells. Immunohistochemistry ([id number]) supports the above diagnosis. Clinical correlation is suggested. Case has been reviewed in consultation with Dr. Leavitt who concurs with the above diagnosis. IDC:SJ GROSS DESCRIPTION Received in fixative is one container labeled with the patient's name and designated peripancreatic mass/lymph node, CT-guided core biopsy. The specimen consists of multiple elongated fragments of couch soft tissue that in aggregate measure 2 x 0.1 x 0.1 cm. The entire specimen is submitted in one cassette. One touch imprint is prepared at the time of core biopsy. / SJ:miya 06/13/18 TC:0 CPT: 04923 HEADER OPERATION: CT-guided biopsy, pancreatic mass PRE-OP DIAGNOSIS: Pancreatic mass TISSUE SUBMITTED: Pancreatic mass 18g core x3, peripancreatic lymph node MICROSCOPIC DESCRIPTION Slides are reviewed. MICROSCOPIC DIAGNOSIS Peripancreatic mass, CT-guided core biopsy: Neuroendocrine carcinoma. AM:miya 06/19/18 Signed Sacha Taj 06/19/18 <signature on file> Performed By: #### PASPIGT #### [facility] [address] [place], [address] PARTIAL THROMBOPLAST Collected: 06/13/2018 Status: F Source: [place] TIME 2:35 AM [facility] [place] TYPE CODE TESTS RESULT OUT OF REFERENCE UNITS RANGE LAB L300.4310 24.1-36.2 Seconds High PTT 58.4 Performed By: #### L300.4310 #### [facility] [address] [place], [address] BIOPSY/INJ OR NEEDLE Observed: 06/13/2018 Status: F Source: [place]AC[place] 12:02 AM [facility] [place] [facility] Imaging Services [address] [place] [address] Biopsy/Inj or Needle Placement MR#: [id number] Acct: [id number] Name: BLANCA BURDEN Rep #: [id number] : 1970 F 48 From: Marvin Isbell MD PCP: Christ Mckenzie MD Status: ADM IN Study: Biopsy/Inj or Needle Placement Date of Exam: 06/13/18 Exam# [id number] Ordering Dr: Rodger Milligan DO PROCEDURE: CT GUIDED biopsy of the soft tissue nodule in the peripancreatic region. DATE: June 13, 2018. INDICATION: Female, 48 years old. History of endometrial carcinoma. Right renal mass. Soft tissue mass adjacent to the pancreatic head. PHYSICIAN: Marvin Isbell M.D. RADIATION DOSAGE (If Supplied By Facility): CTDIvol = ( 18 ) mGy, DLP = ( 456.66 ) mGycm. Individualized dose optimization techniques were utilized. PROCEDURE: The risks, benefits, and alternatives to the procedure were explained to the patient. The specific risk of hemorrhage requiring further treatment or intervention was detailed and accepted. Follow-up instructions were discussed with the patient as well. Written informed consent was obtained. The patient was brought into the CT suite and placed in the supine position. . An appropriate entry site was identified. The overlying skin was prepped and draped in the usual sterile fashion. 1% lidocaine was administered subcutaneously for local anesthesia. Conscious sedation was performed. The patient received 3 mg of Versed and 75 mcg of fentanyl intravenously. Conscious sedation was started at 9:34 AM and terminated at 9:59 AM. The patient was independently monitored by the department nurse. Under CT guidance, a total of 3 passes were performed utilizing a 18 gauge core biopsy needle The specimens were then placed in upper fluid and transported to the laboratory for analysis. Hemostasis was obtained. The patient tolerated the procedure well without immediate complications. CT/Biopsy/Inj or Needle Placement IMPRESSION: Successful CT guided biopsy of the right peripancreatic mass, as described above. Electronically Signed: Marvin Isbell MD at 11:04 EST Tel [phone], Service support , CC: Rodger Milligan DO; Christ Mckenzie MD Electrical Tester: Signed IMMUNOHISTOCHEMISTRY Observed: 06/13/2018 Status: F Source: [place] 12:00 AM [facility] [place] Patient: BLANCA BURDEN : 1970 (48/F) Acct Num: [id number] Phys: Rodger Milligan DO Unit Num: [id number] Loc: [facility] [id number] Specimen: [id number] Received: 06/14/181330 Spec Type: IMMUNO TISSUES 1 TISSUES: Pancreas, NOS SPECIMEN INFORMATION: Tissue Source: Pancreatic mass, peripancreatic lymph node Clinical Info: Pancreatic mass Specimen Number: [id number] CPT code: 44173, 77010 x18 METHODOLOGY: Deparaffinized sections of prefer/formalin-fixed tissue or PAP/DQ stained slides are incubated with monoclonal/polyclonal antibodies/oligonucleotide probes. Localization is made via biotin free immunoperoxidase method. Appropriate controls are performed and reacted as expected. Results on target cell population are indicated in the following table: RESULTS: ANTIBODY / CLONE RESULT GATA3 (L50-823) negative AE1-3 (AE1/AE3/PCK26) positive CK7 (OV-TL12/30) positive, rare cells CK8 (94jspdR97) positive CK19 (A53-B/A2.26) positive CK20 (KS20.8) negative 34BE12 (34BE12) negative CEA (11-7/TF-3HB-1) negative TTF-1 (8G7G3/1) negative Napsin A (Rabbit Polyclonal) negative Thyro (2H11+6E1) negative P53 (DO-7) positive, occasional Vimentin (V9) negative CA125 (OC125) negative CD56 (123C3.D5) positive, dim Chromo (LK2H10) positive Synapto (polyclonal) positive NSE Neuron Specific Enolase positive Ki-67 (30-9) positive, low These tests were developed and their performance characteristics determined by [facility]. They may not have been cleared or approved by the U.S. Food and Drug Administration. The FDA has determined that such clearance or approval is not necessary. 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 AM:miya 06/19/18 PHYSICIAN AND INSTITUTION [place] [phone] Signed Sacha Taj 06/19/18 <signature on file> Performed By: #### PIMM #### [facility] [address] [place], [address] HISTORY AND PHYSICAL Observed: 06/12/2018 Status: F Source: [place] EXAM 8:47 PM [facility] [place] [facility] Medical Records Department [address] [place] [address] History and Physical 06/12/182032 MR#: [id number] Acct: [id number] Name: BLANCA BURDEN Rep #: [id number] : 1970 48 From: Rodger Milligan DO PCP: Christ Mckenzie MD Status: ADM IN Y Location: [place] [address] Problem List (1) Pulmonary embolism Status: Acute Qualifiers: Pulmonary embolism type: other Chronicity: acute Acute cor pulmonale presence: without acute cor pulmonale Qualified Code(s): I26.99 - Other pulmonary embolism without acute cor pulmonale History of Present Illness Date of Admission: 06/12/18 Chief Complaint: Acute pulmonary embolism The patient is a 48 year old F who was seen and examined today in the emergency room at [facility] after being instructed to go there by her oncological SAFETY CONSULTANT physician. Patient underwent a hysterectomy approximately 4 weeks ago, pathology revealed that she had uterine cancer. The surgery was done at [facility]. She had had a chest CT with contrast ordered as well as an abdominal CT with contrast ordered, these were performed on 06/10/18, and she was informed by her physician today that she had a pulmonary embolus and was told to go to the emergency room for evaluation. Patient denied any shortness of breath, chest pain, cough, sputum production, or hemoptysis. She also denied any lightheadedness or presyncopal/syncopal episodes. Results of the CT of the chest and abdomen revealed that the patient had a left-sided pulmonary embolus, she also had evidence of a mass on her right kidney as well as an area which appeared to be a neoplasm near the head of the pancreas and was probably a cluster of enlarged lymph nodes with neoplasm in that area. Her physician who I talked with by phone requested that the patient undergo biopsy of the pancreatic area mass and possibly a biopsy of the renal mass, he had also contacted the radiologist here at [facility] discussed the case and received approval that the patient would undergo this procedure here if the patient was admitted to the hospital. Lab obtained in the emergency room showed a slightly low white blood cell count 4.2, chemistry profile was unremarkable except for a glucose of 110, urinalysis was performed which showed +1 bacteria, 0-5 RBCs, 0-5 WBCs, and elevated leukocyte esterase at 25. At the time of my examination, patient was not tachycardic, her pulse ox on room air was 96%, she did not appear to be in any distress whatsoever. I talked with her and her in the emergency room and she agreed to be admitted here. I also talked with the emergency room physician Dr. Sauer about the case. Patient will be admitted to PCU with a diagnosis of acute pulmonary embolism and right renal and pancreatic area mass, she will be placed on IV heparin, seen by pulmonary medicine, and will undergo biopsy of the mass in the pancreatic area tomorrow. Past Medical History Allergies No Known Allergies Allergy (Verified 06/12/18 09:37) Home Medications: Ambulatory Orders Medication Instructions Recorded Norethindrone Acetate 10 mg PO DAILY 05/16/18 Aspirin [Aspirin, Baby] 81 mg PO DAILY@0800 06/12/18 Surgical History: hysterectomy, - - , left foot surgery Psychiatric History: No pertinent psych hx SAFETY CONSULTANT History: endometrial cancer Lives: Spouse/ Significant Other Smoking Status: Never smoker Tobacco Use: Non-smoker Alcohol: None Drugs: None - *Family History Paternal History Items: Diabetes Maternal History Items: No pertinent history Review of Systems Constitutional: Denies: Anorexia, Chills, Fever, Night Sweats, Malaise, Weakness, Weight Change, Fatigue Eyes: Denies: Blurred vision, Cataracts, Conjunctivae Inflammation, Double vision, Drainage HEENT: Denies: Difficulty Swallowing, Dysphasia, Ear Pain, Eye Pain, Head Aches, Hearing Changes, Nasal bleeding, Nasal Congestion Cardiovascular: Denies: Chest Pain, Claudication, Chest Pressure, Chest Tightness, Edema, Heaviness, Light Headedness, Palpitations Respiratory: Denies: Cough, Hemoptysis, Pleuritic Pain, Shortness of Breath, Shortness of breath at rest, Shortness of breath upon exertion, Sputum production, Wheezing Gastrointestinal: Denies: Abdominal Pain, Constipation, Diarrhea, Hematemesis, Hematochezia, Nausea, Melena, Vomiting Genitourinary: Denies: Dysuria, Frequency, Hematuria, Hesitancy, Incontinence, Nocturia, Urgency Musculoskeletal: Denies: Back Pain, Foot Pain, Hand Pain, Joint Pain, Joint stiffness, Joint swelling, Joint Tenderness, Leg Pain Skin: Denies: Dryness, Pruritis, Rash Neurological: Denies: Balance problems, Blurred vision, Double vision, Slurred speech, Difficulty swallowing, Focal weakness, Headaches, Incoordination, Numbness, Tingling Psychiatric: Denies: Anxiety, Depression, Homicidal Ideations, Suicidal Ideations Endocrine: Denies: Change in Body Habitus, Heat/ Cold Intolerance, Polydipsia, Polyuria Hematologic/ Lymphatic: Denies: Adenopathy, Anemia, Easy Bruising, Easy Bleeding, Petechiae, Purpura VTE Information - Inpt Only VTE Present on Admission: Yes VTE Mechan Device Prophylaxis: None VTE Pharm Prophylaxis ordered?: No Reason prophylaxis not ordered:: Treatment Not Indicated - Patient admitted with acute VTE Patient Problems: Active and Suspected Problems Pulmonary embolism (Acute) - Physical Exam General: Alert, Oriented x3, Cooperative, No apparent distress, Well developed, Well nourished HEENT: Atraumatic, PERRLA, EOMI, Normocephalic Neck: Supple, No JVD, Negative Carotid Bruits, No Nuchal Rigidity, Trachea Midline, Thyroid Normal Size and Texture Lungs: Clear to auscultation, Normal air movement, No rhonchi, No wheeze, No rales Cardiovascular: Regular rate, Regular Rhythm, Normal S1, Normal S2, No murmurs, No Ectopic Activity, PMI Normal, No rub noted, No Gallop Abdomen: Bowel Sounds Present, Soft, Non Tender, Non-Distended, No hernias noted Extremities: No clubbing, No cyanosis, No edema, Capillary Refill Less than 3 Seconds Skin: No rashes, No breakdown Musculoskeletal: No Tenderness to Palpation of Joints or Extremities Neurological: Cranial nerves II-XII grossly intact, Neuro grossly intact, Sensory exam intact to light touch and pain, Coordination normal Psych/Mental Status: Normal Affect, Appropriate, Alert and oriented to time, place, person, mood and affect Vital Signs Temp Pulse Resp BP Pulse Ox 98.7 F 81 18 124/72 H 97 06/12/18 20:10 06/12/18 20:10 06/12/18 20:10 06/12/18 20:10 06/12/18 20:16 Oxygen Delivery Method Room Air Weight: 108.3 kg Body Mass Index (BMI) 39.7 Intake and Output for Last 24 Hours Intake Total 600 / 600 Balance 600 / 600 Laboratory Tests Past 24 Hrs WBC 4.2 L WBC RBC Hgb Hct WBC RBC Hgb Hct MCV MCH MCHC RDW RDW Differential Assessment/Plan All Active Problems Pulmonary embolism (Acute) #1 acute pulmonary embolus left basilar pulmonary artery branches- probably secondary to either existing uterine carcinoma or new primary undiagnosed carcinoma, e.g. renal, pancreas-patient was admitted to PCU, she will be monitored on telemetry, she will be seen by pulmonary medicine, he will be placed on an IV heparin drip, she was given a loading dose of heparin in the emergency room. Patient's heparin drip will be stopped at 4 AM tomorrow morning and the patient will undergo a biopsy of the mass near her pancreas via CAT scan-in radiology. This will take place a proximally 9-10 AM. I discussed this plan with the radiologist today #2 right renal mass, mid abdominal mass in the vicinity of the pancreas-possibly renal cell cancer or less likely pancreatic cancer-again patient will undergo biopsy tomorrow morning #3 recently diagnosed uterine cancer-status post hysterectomy proximally 4 weeks Code Visit Inpatient E AND M: 36766 Init Hosp L3 06/12/182046 <Electronically signed by Rodger Milligan DO> Date Rodger Milligan DO Cosigner Signature: Date (if applicable) CC: Rodger Milligan DO; Christ Mckenzie MD Signed PARTIAL THROMBOPLAST Collected: 06/12/2018 Status: F Source: [place] TIME 6:40 PM [facility] [place] Order Comment: Comments: HEPAR[facility] DRIP TYPE CODE TESTS RESULT OUT OF REFERENCE UNITS RANGE LAB L300.4310 24.1-36.2 Seconds High alert PTT 128.9 Result Comment: CRITICAL VALUE VERIFIED. CALLED TO ALEIDA 06/12/181955 Alyssa Lemus. RESULTS READ BACK BY SAME . Performed By: #### L300.4310 #### [facility] [address] [place], [address] EMERGENCY DEPARTMENT Observed: 06/12/2018 Status: F Source: [place] SUMMARY 2:17 PM [facility] [place] [facility] Medical Records Department [address] [place] [address] Emergency Department Summary 06/12/18 0955 MR#: [id number] Acct: [id number] Name: BLANCA BURDEN Rep #: [id number] : 1970 48 From: James Freeman DO PCP: Christ Mckenzie MD Status: ADM IN - ER Visit Summary Date of Service: 06/12/18 Chief Complaint: Pulmonary embolism History of Present Illness: The patient is a 48 F who presents after having an outpatient CT scan done 2 days ago which showed a pulmonary embolism. Patient had a recent hysterectomy which showed uterine malignancy. Patient had an outpatient CT scan of the chest, abdomen, and pelvis which was recommended to be done by her gynecology oncologist. This showed a pulmonary embolism along with a mass on the head of the pancreas and a mass in the right kidney. Currently, the patient denies any symptoms. Patient denies any chest pain or shortness of breath. Patient denies any palpitations. Patient was referred to the emergency department for admission and further evaluation of her pancreatic and kidney masses as well as treatment of her pulmonary embolism. Physical Examination: Vital signs are stable. Patient is afebrile. Patient is in no acute distress. Oral mucosa is pink and moist. Neck is supple. Trachea is midline. There is no JVD noted. Heart was regular rate and rhythm. Lungs are clear and equal bilaterally. There is good respiratory effort noted. Abdomen is soft. Bowel sounds are normal. There is no tenderness. There is no guarding noted. Cranial nerves II through XII are intact. There are no focal motor or sensory deficits noted. The remaining physical exam is within normal limits. Test Results: CBC, comprehensive metabolic profile, PT with INR, and PTT were obtained and were all within normal limits. Emergency Department Course and Treatment: Case was discussed with the hospitalist. Patient will be admitted to the hospital here to the PCU. Patient and family understood and were agreeable with the plan. All questions were answered. Disposition: Admit to hospital Impression: 1. Pulmonary embolism 2. Pancreatic mass 3. Right renal mass This note was generated with FIZZA dictation software. It may contain incorrect words, spelling, and punctuation that were not noted in review of the chart prior to signing ED Disposition - Plan for ED Patient: Chief Complaint: Shortness of Breath Referrals: Christ Mckenzie [Primary Care Provider] - What to do if you have Problems For any increased pain, shortness of breath, bleeding, nausea or vomiting, chest pain, or any unexpected problems, contact your Primary Care Provider. Call [facility] ([phone]) or report to the closest Emergency Room. Call 911 if necessary. 06/12/18 1417 <Electronically signed by James Freeman DO> Date James Freeman DO Cosigner Signature (If Indicated): Date CC: Christ Mckenzie MD MISCELLANEOUS LAB Collected: 06/12/2018 Status: F Source: [place] PROCED[place] 12:55 PM [facility] [place] Order Comment: Comments: dRVVT (dilute Bam viper venom time) Test(s) Ordered: [id number] 2-blues frozen plasma TYPE CODE TESTS RESULT OUT OF RANGE REFERENCE UNITS LAB L801.1541 Normal [facility] [place] LAB TEST Result Comment: TEST RESULT LIMITS Dilute Bam's Viper Venom dRVVT 55.5 High sec 0.0 - 47.0 dRVVT Mix 45.7 sec 0.0 - 47.0 TESTING PERFORMED AT [facility]. ORIGINAL REPORT ON FILE IN LAB CONTAINS ADDITIONAL TEST SITE INFORMATION. Performed By: #### L801.1541 #### [facility] [address] [place], [address] PROTEIN C DEFIC. Collected: 06/12/2018 Status: F Source: [facility] 12:55 PM [facility] [place] TYPE CODE TESTS RESULT OUT OF RANGE REFERENCE UNITS LAB L3100.7310 60-150 % Normal PROTEIN C 144 Performed By: #### L3100.7275, L3100.7325, L3100.8410, L3300.0450, L3410.2000, L4500.2000, L4500.5000 #### [facility] (refer to report for specific site) refer to report for address and phone number PROTEIN C, FUNCTIONAL Collected: 06/12/2018 Status: F Source: [place] 12:55 PM [facility] [place] TYPE CODE TESTS RESULT OUT OF RANGE REFERENCE UNITS LAB L3100.7325 73-180 % Normal PROT C, 157 Funct Performed By: #### L3100.7275, L3100.7325, L3100.8410, L3300.0450, L3410.2000, L4500.2000, L4500.5000 #### [facility] (refer to report for specific site) refer to report for address and phone number ANTICARDIOLIPIN IGG, IGM Collected: 06/12/2018 Status: F Source: [place] 12:55 PM [facility] [place] TYPE CODE TESTS RESULT OUT OF RANGE REFERENCE UNITS LAB L3100.8420 0-14 GPL U/mL Normal ANTICARDIO IgG < 9 Result Comment: Negative: <15 Indeterminate: 15 - 20 Low-Med Positive: >20 - 80 High Positive: >80 LAB L3100.8425 0-12 MPL U/mL Normal ANTICARDIO IgM 9 Result Comment: Negative: <13 Indeterminate: 13 - 20 Low-Med Positive: >20 - 80 High Positive: >80 Performed By: #### L3100.7275, L3100.7325, L3100.8410, L3300.0450, L3410.2000, L4500.2000, L4500.5000 #### [facility] (refer to report for specific site) refer to report for address and phone number AT III [facility] / Collected: 06/12/2018 Status: F Source: [place] 12:55 PM [facility] [place] TYPE CODE TESTS RESULT OUT OF RANGE REFERENCE UNITS LAB L3300.0500 75-135 % Normal AT3 FUNCTION 119 Result Comment: Direct Xa inhibitor anticoagulants such as rivaroxaban, apixaban and edoxaban will lead to spuriously elevated antithrombin activity levels possibly masking a deficiency. LAB L3300.0540 72-124 % Normal AT3 AG, IMMUNOL 96 Result Comment: This test was developed and its performance characteristics determined by [facility]. It has not been cleared or approved by the Food and Drug Administration. Performed By: #### L3100.7275, L3100.7325, L3100.8410, L3300.0450, L3410.2000, L4500.2000, L4500.5000 #### [facility] (refer to report for specific site) refer to report for address and phone number BETA-2 GLYCOPROT IGG, Collected: 06/12/2018 Status: F Source: [place] 12:55 PM [facility] [place] TYPE CODE TESTS RESULT OUT OF RANGE REFERENCE UNITS LAB L3410.2100 0-20 Normal B2 GLYCO <9 I IGG Result Comment: Result Units: GPI IgG units The reference interval reflects a 3SD or 99th percentile interval, which is thought to represent a potentially clinically significant result in accordance with the International Consensus Statement on the classification criteria for definitive antiphospholipid syndrome (APS). J Thromb Haem 2006;4:295-306. LAB L3410.2200 0-25 Normal B2 GLYCO I IGA <9 Result Comment: Result Units: GPI IgA units The reference interval reflects a 3SD or 99th percentile interval, which is thought to represent a potentially clinically significant result in accordance with the International Consensus Statement on the classification criteria for definitive antiphospholipid syndrome (APS). J Thromb Haem 2006;4:295-306. LAB L3410.2300 0-32 Normal B2 GLYCO I IGM <9 Result Comment: Result Units: GPI IgM units The reference interval reflects a 3SD or 99th percentile interval, which is thought to represent a potentially clinically significant result in accordance with the International Consensus Statement on the classification criteria for definitive antiphospholipid syndrome (APS). J Thromb Haem 2006;4:295-306. Performed By: #### L3100.7275, L3100.7325, L3100.8410, L3300.0450, L3410.2000, L4500.2000, L4500.5000 #### [facility] (refer to report for specific site) refer to report for address and phone number FACTOR II, DNA Collected: 06/12/2018 Status: F Source: [place] ANALYS[facility] 12:55 PM [facility] [place] TYPE CODE TESTS RESULT OUT OF RANGE REFERENCE UNITS LAB L4500.2100 . Normal FACTOR Comment II,DNA Result Comment: NEGATIVE No mutation identified. Comment: A point mutation ([id number]) in the factor II (prothrombin) gene is the second most common cause of inherited thrombophilia. The incidence of this mutation in the [place] population is about 2% and in the population it is approximately 0.5%. This mutation is rare in the and population. Being heterozygous for a prothrombin mutation increases the risk for developing venous thrombosis about 2 to 3 times above the general population risk. Being homozygous for the prothrombin gene mutation increases the relative risk for venous thrombosis further, although it is not yet known how much further the risk is increased. In women heterozygous for the prothrombin gene mutation, the use of estrogen containing oral contraceptives increases the relative risk of venous thrombosis about 16 times and the risk of developing cerebral thrombosis is also significantly increased. In the prothrombin gene mutation increases risk for venous thrombosis and may increase risk for stillbirth, placental abruption, pre-eclampsia and growth restriction. If the patient possesses two or more congenital or acquired thrombophilic risk factors, the risk for thrombosis may rise to more than the sum of the risk ratios for the individual mutations. This assay detects only the prothrombin [id number] mutation and does not measure genetic abnormalities elsewhere in the genome. Other thrombotic risk factors may be pursued through systematic clinical laboratory analysis. These factors include the R506Q (Leiden) mutation in the Factor V gene, plasma homocysteine levels, as well as testing for deficiencies of antithrombin III, protein C and protein S. Genetic Counselors are available for health care providers to discuss results at [phone] ([phone]). Methodology: DNA analysis of the Factor II gene was performed by PCR amplification followed by restriction analysis. The diagnostic sensitivity is >99% for both. All the tests must be combined with clinical information for the most accurate interpretation. Molecular-based testing is highly accurate, but as in any laboratory test, diagnostic errors may occur. This test was developed and its performance characteristics determined by [facility]. It has not been cleared or approved by the Food and Drug Administration. Sulaimant SR, et al. Blood. 1996; 88:0263-3548. Alice EA. Circulation. 2004; 110:e15-e18. Ilya I, et al. Arterioscler Thromb Vasc Biol. 1999; 19:700-703. Sán[place], PhD, FAC Venus Walker, PhD, FAC Veronica Araya M.S., PhD, FAC Misty Wayne, PhD, FAC Clara Goodrich, PhD, FAC Joseph Narvaez, PhD, FAC Performed at: [address] [id number] Merchandise Pickup/Receiving Associate: Jan Ospina MD, Phone: [phone] Performed at: [address] [id number] Merchandise Pickup/Receiving Associate: Rene Lux PhD, Phone: [phone] Performed at: [address] [id number] Merchandise Pickup/Receiving Associate: Lonnie Laboy MD, Phone: [phone] Performed By: #### L3100.7275, L3100.7325, L3100.8410, L3300.0450, L3410.2000, L4500.2000, L4500.5000 #### [facility] (refer to report for specific site) refer to report for address and phone number FACT V LEIDEN Collected: 06/12/2018 Status: F Source: [place] MUTATION 12:55 PM [facility] [place] TYPE CODE TESTS RESULT OUT OF REFERENCE UNITS RANGE LAB L4500.5100 . High FACTOR V Comment LEIDEN Result Comment: RESULT: SINGLE R506Q MUTATION IDENTIFIED (HETEROZYGOTE) Factor V Leiden is a specific mutation (R506Q) in the factor V gene that is associated with an increased risk of venous thrombosis. Factor V Leiden is more resistant to inactivation by activated protein C. As a result, factor V persists in the circulation leading to a mild hypercoagulable state. Factor V Leiden has been reported in patients with deep vein thrombosis, pulmonary embolus, central retinal vein occulsion, cerebral sinus thrombosis, and hepatic vein thrombosis. The relative risk of venous thrombosis is increased approximately 4-8 fold in individuals who are heterozygous. About 3-8% of the general [place] and population are heterozygous. The risk of venous thrombosis increases exponentially in patients with more than one risk factor, including: age, surgery, oral contraceptive use, , elevated homocysteine levels, or a Factor II/prothrombin mutation (L55371G). Additionally, for individuals found to be heterozygous for the Factor V Leiden mutation, presence of a second mutation, Factor V R2, further increases the risk if venous thrombosis. Contact [facility] Customer Service at for further information on both the Factor II (Prothrombin) DNA Analysis, and Factor V R2 DNA Analysis tests. Genetic counselors are available for health care providers to discuss results at [phone]). Methodology: DNA analysis of the Factor V gene was performed by allele- specific PCR. The diagnostic sensitivity and specificity is >99% for both. Molecular-based testing is highly accurate, but as in any laboratory test, diagnostic errors may occur. All test results must be combined with clinical information for the most accurate interpretation. This test was developed and its performance characteristics determined by [facility]. It has not been cleared or approved by the Food and Drug Administration. References: Salvador Garcia (1996). Clin Lab Med 16:169-186. Sán[place], PhD, FACMG Venus Walker, PhD, FACMG Veronica Araya M.S., PhD, FACMG Misty Wayne, PhD, FACMG Clara Goodrich, PhD, FACMG Joseph Narvaez PhD, FAC Performed By: #### L3100.7275, L3100.7325, L3100.8410, L3300.0450, L3410.2000, L4500.2000, L4500.5000 #### [facility] (refer to report for specific site) refer to report for address and phone number CONSULTATION Observed: 06/12/2018 Status: F Source: [place] 12:48 PM [facility] [place] [facility] Medical Records Department [address] [place] [address] Consultation 06/12/18 1226 MR#: [id number] Acct: [id number] Name: BLANCA BURDEN Rep #: [id number] : 1970 48 From: Harvey Mckenzie DO PCP: Christ Mckenzie MD Status: ADM IN Y Location: [place] [address] Reason for Consult Date of Consultation: 06/12/18 Reason for Consultation: Pulmonary embolism History of Present Illness: The patient is a 48-year-old female, with a history as outlined below, who presented to the emergency department at the urging of an outside provider after abnormal chest and abdominal imaging was obtained 2 days ago. In mid May, the patient underwent a total abdominal hysterectomy with bilateral salpingo-oophorectomy, which revealed evidence of endometrial adenocarcinoma. The patient was subsequently referred to Dr. Vickey Fisher of Physical Education Department Chair oncology at [facility]. CT scan of the chest, abdomen and pelvis were subsequently ordered. Those imaging studies were completed on June 10 and revealed evidence of a left basilar pulmonary embolism, along with the pancreatic head mass. Therefore, the patient was referred back to the emergency department for further evaluation and treatment of her PE. The patient denies a history of prior venous thromboembolic disease. She currently denies any shortness of breath or chest pain. On presentation to the emergency department, the patient was noted to be afebrile, hemodynamically stable and maintaining appropriate oxygen saturations on room air. Initial laboratory evaluation was largely unremarkable. The case was discussed with Dr. Morales of radiology with regards to the need for percutaneous needle biopsy of the pancreatic head mass. There are currently tentative plans for the patient to undergo a biopsy sometime tomorrow. Therefore, the plan has been to start the patient on a continuous heparin infusion in the interim. We were asked to weigh in on the need for potential IVC filter placement. Past Medical History Allergies No Known Allergies Allergy (Verified 06/12/18 09:37) Home Medications: Ambulatory Orders Medication Instructions Recorded Norethindrone Acetate 10 mg PO DAILY 05/16/18 Aspirin [Aspirin, Baby] 81 mg PO DAILY@0800 06/12/18 Smoking Status: Never smoker Review of Systems Constitutional: Denies: Chills, Fever, Weight Change HEENT: Denies: Head Aches, Sinus Congestion, Sinus Drainage Cardiovascular: Denies: Chest Pain, Palpitations Respiratory: Denies: Cough, Shortness of breath at rest, Sputum production Gastrointestinal: Denies: Abdominal Pain, Nausea, Vomiting Genitourinary: Denies: Dysuria Musculoskeletal: Denies: Joint Pain, Joint Tenderness Skin: Denies: Rash, Wounds Neurological: Denies: Numbness, Tingling, Focal weakness Psychiatric: Denies: Anxiety, Depression, Homicidal Ideations, Suicidal Ideations Hematologic/ Lymphatic: Reports: Hx of blood clot Objective: The patient's most recent lab work, culture data and imaging studies have all been personally reviewed. - Physical Exam General: Alert, Oriented x3, Cooperative, No apparent distress HEENT: Atraumatic, PERRLA, Normocephalic Oral: Moist Mucosa, No Gingival or Mucosal Lesions/ Ulcerations Neck: Supple, No Nodes, Trachea Midline Lungs: Normal air movement, No rhonchi, No wheeze, No rales Cardiovascular: Regular rate, Regular Rhythm, Normal S1, Normal S2, No murmurs Abdomen: Bowel Sounds Present, Soft, Non Tender, Obese Extremities: No clubbing, No cyanosis, No edema Skin: No rashes, No breakdown Musculoskeletal: No Tenderness to Palpation of Joints or Extremities, No Muscle Wasting Lymphatic: No Cervical, Supraclavicular, or Inguinal Adenopathy Neurological: Cranial nerves II-XII grossly intact, Neuro grossly intact Psych/Mental Status: Alert and oriented to time, place, person, mood and affect Vital Signs Temp Pulse Resp BP Pulse Ox 36.4 C L 80 16 132/84 H 95 06/12/18 09:37 06/12/18 11:26 06/12/18 11:26 06/12/18 11:26 06/12/18 11:26 Oxygen Delivery Method Room Air Weight: 245 lb Body Mass Index (BMI) 40.7 Laboratory Tests Past 24 Hrs WBC 4.2 L RBC 4.25 Hgb 13.1 Hct 37.9 MCV 89.2 WBC RBC Hgb Hct MCV MCH MCHC RDW RDW Differential Assessment/Plan RECOMMENDATIONS: 1. Continue heparin drip in preparation for planned biopsy procedure tomorrow. 2. Send hypercoagulable workup prior to initiating anticoagulation. 3. Would favor transitioning to Lovenox once the patient's procedural workup has been completed. IMPRESSIONS: 1. Pulmonary embolism The patient was recently diagnosed with a pulmonary embolism in the setting of a newly diagnosed endometrial adenocarcinoma. She has yet to be started on an anticoagulation regimen. Given the need to obtain a tissue biopsy of the pancreatic mass noted on CT abdomen/pelvis, agree with starting a heparin infusion, while awaiting completion of the procedure. Would plan to send a hypercoagulable workup prior to the initiation of the patient's anticoagulation regimen. Would favor transitioning to Lovenox after the patient's procedure workup has been completed. There is no indication for IVC filter placement, as the patient does not have a contraindication to systemic anticoagulation. 2. Newly diagnosed endometrial adenocarcinoma/pancreatic head mass/adenopathy Tentative plans for the patient to undergo a percutaneous needle biopsy tomorrow in radiology. The patient's heparin will need to be placed on hold prior to the procedure accordingly. 3. Obesity Complicates care, management, recovery and prognosis. Weight loss through dietary modification and a graded exercise regimen is strongly encouraged. This note was generated with FIZZA dictation software. It may contain incorrect words, spelling, and punctuation that were not noted in checking the note before signing. Code Visit Inpatient E AND M: 79700 Init Hosp L2 06/12/18 1248 <Electronically signed by Harvey Mckenzie DO> Date Harvey Mckenzie DO Cosigner Signature (if applicable): Date CC: Harvey Mckenzie D.O.; Christ Mckenzie MD Signed CBC W/DIFF, AUTOMATED Collected: 06/12/2018 Status: F Source: [place] 10:00 AM [facility] [place] TYPE CODE TESTS RESULT OUT OF RANGE REFERENCE UNITS LAB L100.1000 4.4-11.0 K/mm3 Low WBC 4.2 LAB L100.1200 4.2-5.4 M/mm3 Normal RBC 4.25 LAB L100.1300 12.0-15.0 g/dl Normal HGB 13.1 LAB L100.1400 37-47 % Normal HCT 37.9 LAB L100.1500 81-99 fL Normal MCV 89.2 LAB L100.1600 27.0-32.0 pg Normal MCH 30.8 LAB L100.1700 32-36 g/gl Normal MCHC 34.6 LAB L100.1810 11.6-14.6 % Normal RDW CV 13.5 LAB L100.1820 35.1-43.9 fl Normal RDW SD 43.2 LAB L100.1900 150-450 K/mm3 Normal PLT 287 LAB L100.2000 6.2-12.0 fl Normal MPV 9.7 LAB L100.2100 47-70 % Normal NEUT% 50.1 LAB L100.2200 19-41 % Normal LY% 37.1 LAB L100.2300 0-10 % Normal MONO% 7.8 LAB L100.2400 0-5 % Normal EO% 4.5 LAB L100.2500 0-1 % Normal BASO% 0.5 LAB L100.2550 0.0-0.9 % Normal IM GRAN % 0.000 Result Comment: IG% - Immature Granulocytes (promyelocytes, myelocytes and metamyelocytes) > 1% indicates that a LEFT SHIFT is Present. LAB L100.2620 2.0-7.7 X10 3/uL Normal Absolute Neut 2.1 LAB L100.2720 0.83-4.51 X10 3/ul Normal Absolute Lymph 1.56 Performed By: #### L100.0100 #### [facility] [address] [facility] [place], [address] URINALYSIS, COMPLETE Collected: 06/12/2018 Status: F Source: [place] 10:00 AM [facility] [place] Order Comment: Order Date: 06/12/18 How was Urine Obtained? CLEAN CATCH TYPE CODE TESTS RESULT OUT OF RANGE REFERENCE UNITS LAB L400.3000 Yellow COLOR Normal Yellow LAB L400.3050 Clear Normal CLARITY Clear LAB L400.3200 Normal mg/dl Normal GLUCOSE, UR Normal LAB L400.3300 Negative mg/dL Normal BILIRUBIN URINE Negative LAB L400.3400 Negative mg/dl Normal KETONE UR Negative LAB L400.3465 1.002-1.030 Normal SP.GR. DIPSTX 1.010 LAB L400.3550 5.0 - 8.0 pH UR Normal 6.0 LAB L400.3600 Negative mg/dl PROT Normal DIPSTX Negative LAB L400.3700 Normal mg/dl Normal UROBILI Normal LAB L400.3750 Negative Normal NITRITE UR Negative LAB L400.3780 Negative /ul Normal OCCULT BLOOD-UR Negative LAB L400.3800 Negative /ul High LEUK 25 ESTERASE LAB L400.4050 0-5 /hpf WBC Normal 0-5 SEEN LAB L400.4100 0-5 /hpf Normal RBC-UA 0-5 SEEN LAB L400.4150 5-10 /hpf SQUAM Normal EPI 0-5 SEEN LAB L400.4300 None Seen /hpf 1+ Normal BACTERIA LAB L400.4350 <or=2+ /hpf 0 Normal MUCUS, URINE SEEN Performed By: #### L400.0001 #### [facility] [address] [place], [address] COMPREHENSIVE METABOLIC Collected: 06/12/2018 Status: F Source: [facility] 10:00 AM [facility] [place] TYPE CODE TESTS RESULT OUT OF RANGE REFERENCE UNITS LAB L501.0100 74-106 mg/dL High GLU 110 Result Comment: Fasting Glucose result from 100 to 125 mg/dL suggests IMPAIRED HOMEOSTASIS per A.D.A. criteria. Please note revised GLUCOSE reference range effective 2017. LAB L501.1000 7-18 mg/dL Normal BUN 8 LAB L501.1100 0.55-1.02 mg/dL Normal CREAT,SERUM 0.79 Result Comment: The validity of the calculated GFR AND GFRAA in patients over 70 years has not been determined. Clinical correlation is essential. LAB L501.1110 >60 mL/min Normal EST GFR 83 Result Comment: Non- GFR Calc LAB L501.1115 >60 mL/min Normal EST GFR - AA 101 Result Comment: GFR Calc LAB L501.1255 ml/min Normal Estimated CRCL 79.22 LAB L501.1300 10-20 RATIO Normal BUN/CRE 10.2 LAB L501.1500 6.4-8. g/dL Normal 2 T PROT 7.9 LAB L501.1800 3.2-5. g/dL Normal 0 ALB 4.1 LAB L501.1950 2.2-4. g/dL Normal 2 GLOB 3.8 LAB L501.2000 0.9-2. RATIO Normal 4 A/G 1.1 LAB L501.2200 8.5-10 mg/dL Normal .1 CA 9.1 LAB L501.4100 15-37 U/L Normal AST 27 LAB L501.4305 45-117 U/L Normal ALK P 52 LAB L501.4405 13-56 U/L Normal ALT 23 LAB L501.4600 0.20-1 mg/dL Normal .00 T BILI 0.40 LAB L501.5300 136-14 mmol/L Normal 5 NA 141 LAB L501.5600 3.5-5. mmol/L Normal 1 K 3.7 LAB L501.5900 98-107 mmol/L Normal CL 106 LAB L501.6100 21.0-3 mmol/L Normal 2.0 CO2 27.0 LAB L501.6200 5-15 Normal GAP 8 Performed By: #### L500.4050 #### [facility] [address] [place], [address] PROTHROMBIN TIME W/INR Collected: 06/12/2018 Status: F Source: [place] 10:00 AM [facility] [place] TYPE CODE TESTS RESULT OUT OF RANGE REFERENCE UNITS LAB L300.4150 11.7-14.9 SECONDS Normal PROTIME 13.0 LAB L300.4200 Normal INR 1.0 Performed By: #### L300.3900, L300.4310 #### [facility] [place], [address] PARTIAL THROMBOPLAST Collected: 06/12/2018 Status: F Source: [place] TIME 10:00 AM [facility] [place] TYPE CODE TESTS RESULT OUT OF RANGE REFERENCE UNITS LAB L300.4310 24.1-36.2 Seconds Normal PTT 29.7 Performed By: #### L300.3900, L300.4310 #### [facility] [address] [place], [address] ABDOMEN/PELVIS WITH Observed: 06/10/2018 Status: F Source: [place] CONTRAST 7:26 AM [facility] [place] [facility] Imaging Services [address] [place] [address] Abdomen/Pelvis WITH Contrast MR#: [id number] Acct: [id number] Name: BLANCA BURDEN Rep #: [id number] : 1970 F 48 From: Brandin Hung PCP: Christ Mckenzie MD Status: REG CLI Study: Abdomen/Pelvis WITH Contrast Date of Exam: 06/10/18 Exam# [id number] Ordering Dr: Vickey Fisher MD STUDY: CT ABDOMEN AND PELVIS WITH CONTRAST REASON FOR EXAM: Female, 48 years old. Endometrial cancer RADIATION DOSAGE (If Supplied By Facility): CTDIvol = ( 23.48 ) mGy, DLP = ( 3527.32 ) mGycm TECHNIQUE: Transaxial images were obtained from the dome of the diaphragm to the symphysis pubis without oral contrast. 100CC ml of Isovue 300 contrast was administered. Sagittal and coronal images were reconstructed. Individualized dose optimization techniques were used for this CT. COMPARISON: None. FINDINGS: The visualized lung bases are unremarkable. The visualized portions of the heart are within normal limits. Liver is fatty. There is NO discrete mass. There is cholelithiasis. There is NO evidence of cholecystitis or biliary ductal dilatation. Normal spleen. The pancreas is unremarkable. However, there is a mass along the head of the pancreas on the RIGHT extending into the giuliana hepatis superiorly measuring 6 x 3 x 4.2 centers. This demonstrates heterogeneous density and enhancement. This could be an exophytic pancreatic neoplasm or metastatic lymph node. Normal bilateral adrenal glands. There is a heterogeneously enhancing mass in the midpole of the RIGHT kidney measuring 6.5 x 4.5 x 4.3 cm. This is suspicious for malignancy. Normal left kidney. Normal visualized stomach. Normal small intestine. Normal colon. There is non-visualization of the appendix. Normal abdominal aorta. Normal inferior vena cava. 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 Tumor thrombosis is not excluded. Normal urinary bladder. There has been a hysterectomy. There is NO pelvic mass or fluid collection. Normal abdominal wall. Normal osseous structures. CT/Abdomen/Pelvis WITH Contrast IMPRESSION: There is cholelithiasis. There is NO evidence of cholecystitis or biliary ductal dilatation. There is a mass along the head of the pancreas on the RIGHT extending into the giuliana hepatis superiorly measuring 6 x 3 x 4.2 centers. This demonstrates heterogeneous density and enhancement. This could be an exophytic pancreatic neoplasm or metastatic lymph node. There is a heterogeneously enhancing mass in the midpole of the RIGHT kidney measuring 6.5 x 4.5 x 4.3 cm. This is suspicious for malignancy. There is NO acute bowel abnormality. 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 Tumor thrombosis is not excluded. There has been a hysterectomy. There is NO pelvic mass or fluid collection. Electronically Signed: Brandin Hung MD at 6:26 EST , Service support , CC: Christ Mckenzie MD; Vickey Fisher Electrical Tester: Signed CHEST WITH CONTRAST Observed: 06/10/2018 Status: F Source: [place] 7:26 AM [facility] Imaging Services [address] [place] [id number] Chest WITH Contrast MR#: [id number] Acct: [id number] Name: BLANCA BURDEN Rep #: [id number] : 1970 F 48 From: Brandin Hung PCP: Christ Mckenzie MD Status: REG CLI Study: Chest WITH Contrast Date of Exam: 06/10/18 Exam# [id number] Ordering Dr: Vickey Fisher MD STUDY: CT CHEST WITH CONTRAST REASON FOR EXAM: Female, 48 years old. Endometrial cancer RADIATION DOSAGE (If Supplied By Facility): CTDIvol = ( 23.48 ) mGy, DLP = ( 3527.32 ) mGycm TECHNIQUE: Transaxial imaging was performed following intravenous administration of 100CC ml of Isovue 300 contrast material. Individualized dose optimization techniques were used for this CT. COMPARISON: None. FINDINGS: The heart size is normal. There is NO pericardial effusion. There is NO mediastinal or hilar lymphadenopathy. There are filling defects in the LEFT basilar pulmonary artery branches suggesting chronic pulmonary embolism. NO acute occlusive thrombosis is seen. There is NO saddle embolus. The thoracic aorta is normal in caliber. There is NO aneurysm or dissection. The lungs are expanded. There are fibrotic changes at the LEFT lung base. There are NO infiltrates, effusions or pneumothoraces. NO discrete pulmonary nodules or masses are seen. The thoracic spine, sternum and ribs are intact. CT/Chest WITH Contrast IMPRESSION: The heart size is normal. There are filling defects in the LEFT basilar pulmonary artery branches suggesting chronic pulmonary embolism. NO acute occlusive thrombosis is seen. There is NO saddle embolus. The thoracic aorta is normal in caliber. There are fibrotic changes at the LEFT lung base. There are NO infiltrates, effusions or pneumothoraces. NO discrete pulmonary nodules or masses are seen. Electronically Signed: Brandin Hung MD at 7:11 EST , Service support , CC: Christ Mckenzie MD; Vickey Fisher Electrical Tester: Signed CBC-COMPLETE BLOOD CNT Collected: 05/21/2018 Status: F Source: [place] NO DIFF 5:10 AM [facility] [place] TYPE CODE TESTS RESULT OUT OF RANGE REFERENCE UNITS LAB L100.1000 4.4-11.0 K/mm3 Normal WBC 8.0 LAB L100.1200 4.2-5.4 M/mm3 Low RBC 3.18 LAB L100.1300 12.0-15.0 g/dl Low HGB 9.8 LAB L100.1400 37-47 % Low HCT 29.8 LAB L100.1500 81-99 fL Normal MCV 93.7 LAB L100.1600 27.0-32.0 pg Normal MCH 30.8 LAB L100.1700 32-36 g/gl Normal MCHC 32.9 LAB L100.1810 11.6-14.6 % Normal RDW CV 14.1 LAB L100.1820 35.1-43.9 fl High RDW SD 45.6 LAB L100.1900 150-450 K/mm3 Normal PLT 303 LAB L100.2000 6.2-12.0 fl Normal MPV 9.3 Performed By: #### L100.0500 #### [facility] [address] [place], [address] SERUM CREATININE AND Collected: 05/21/2018 Status: F Source: [place] GFR 5:10 AM [facility] TYPE CODE TESTS RESULT OUT OF RANGE REFERENCE UNITS LAB L501.1100 0.55-1.02 mg/dL Normal 0.86 CREAT,SERUM Result Comment: The validity of the calculated GFR AND GFRAA in patients over 70 years has not been determined. Clinical correlation is essential. LAB L501.1110 >60 mL/min Normal EST GFR 75 Result Comment: Non- GFR Calc LAB L501.1115 >60 mL/min Normal EST GFR - AA 91 Result Comment: GFR Calc LAB L501.1255 ml/min Normal Estimated CRCL 72.77 Performed By: #### L501.1105 #### [facility] [address] [place], [address] OPERATIVE REPORT Observed: 05/20/2018 Status: F Source: [place] 4:45 PM [facility] Medical Records Department [address] [place] [address] Operative Report 05/20/18 1425 MR#: [id number] Acct: [id number] Name: BLANCA BUDREN Rep #: [id number] : 1970 48 From: Rina Finley MD PCP: Christ Mckenzie md Status: ADM IN Location: [place] [id number] Operative Report Date of Procedure: 05/20/18 Surgeon: Rina Finley MD, FACOG Welfare Project Manager: WADE Rojas; WADE Saul Anesthesia: Andrea Wagner CRNA Type of Anesthesia: General endotracheal Procedure: Total Abdominal Hysterectomy, Bilateral Salpingo-Oophorectomy Findings: 15 cm cm fibroid uterus with normal appearing fallopian tubes and ovaries; two 3 x 4 cm extra uterine polypoid structures protruding from the left posterior aspect of the cervix into the peritoneal cavity with frozen section diagnosis being endometrial polyps with hyperplasia; left ovary densely adhered the posterior aspect of uterus; powder olmos across the posterior aspect of the uterus suggestive of endometriosis; normal palpating aortic lymph nodes and normal abdomen otherwise. Indications: This is a 48-year-old patient who his been having problems with bleeding nearly every day for the last year. Endometrial biopsy recently showed complex endometrial hyperplasia with minimal atypia. Recent ultrasound also showed a 9 cm fibroid. Given this the patient desires that we proceed with the above procedure. She has been counseled regarding the risk and indications of this procedure including the possibility of bleeding, infection, and injury to surrounding structures such as bowel bladder. All questions were answered. Procedure: Patient was taken to the operating room where after induction of general anesthesia she was prepped and draped in the usual sterile fashion. A Watlon catheter was placed. The abdomen was entered through a Pfannenstiel incision and peritoneal cavity was entered bluntly. We were unable to place a Hanover retractor at this point. Infundibulopelvic ligaments were ligated x2 on the left and utero-ovarian vessels on the right. A bladder flap was developed and progressive bites were then taken down on either side of the uterine cervix ligating each pedicle with 0 Vicryl suture. Final bites across the vaginal cuff incorporated the uterosacral ligaments into the vaginal cuff using 0 Vicryl suture and two aodbov-ax-htvol sutures were placed across the vaginal cuff. Vaginal cuff and pelvic sidewall pedicles were oversewn where necessary to achieve hemostasis. The right infundibulopelvic ligament was then ligated with 0 Vicryl suture x2. Peristalsis of the right ureter was noted. Pelvis was copiously irrigated removing all clot. Hanover retractor was removed and rectus abdominis muscles were reapproximated in the midline with interrupted 0 Vicryl suture. 0 PDS strata fix was used to close the fascia in a running fashion and subcutaneous tissue was copiously irrigated with saline solution before closing with 3-0 Vicryl suture. 3-0 Monocryl suture was then used in running fashion to reapproximate skin edges area and Steri-Strips placed across the incision. Patient tolerated the procedure well was taken to recovery room in satisfactory condition; sponge instrument and needle counts were all reportedly correct. Estimated blood loss for the case was approximately 200 cc. Cefotan 2 g IV was given prior to beginning the operative procedure. There were no apparent complications of the surgery. Specimen to pathology was uterus and bilateral fallopian tubes and ovaries. Frozen section diagnosis showed extrauterine polyp with hyperplasia. 05/20/18 1645 <Electronically signed by Rina Finley MD> Date Rina Finley MD CC: md Christ Mckenzie; Rina Finley MD Signed HYSTERECTOMY SPECIMEN Observed: 05/20/2018 Status: F Source: [place] 3:08 PM [facility] Patient: BLANCA BURDEN : 1970 (48/F) Acct Num: [id number] Phys: Rina Finley MD Unit Num: [id number] Loc: MS2 HP366-1 Specimen: [id number] Received: 05/20/181511 Spec Type: HYSTERECT TISSUES 1 TISSUES: A. Uterus, NOS B. Uterus, NOS COMMENT UTERINE CANCER SUMMARY: Specimen - uterine corpus Procedure - radical hysterectomy Lymph node sampling - not performed Specimen integrity - intact specimen Tumor site - involves entire endometrial surface. Tumor size - 12 x 9 x 2.5 cm Histologic type - endometrioid adenocarcinoma Histologic grade - FIGO grade I Myometrial invasion - present (>50% of myometrial invasion) Involvement of cervix - not involved Extent of involvement of other organs: Right ovary - not involved Left ovary - not involved Right fallopian tube - not involved Left fallopian tube - not involved Margins - uninvolved by invasive carcinoma. Lymph-Vascular invasion - not identified Lymph nodes - not submitted Periaortic lymph nodes - not submitted Additional pathologic findings - right and left ovary with serous cystadenofibromas. Ancillary studies - Immunohistochemistry ([id number]) PATHOLOGIC STAGE: pT1b Nx Mx The above summary is in compliance with [employer] [employer] (CAP) Cancer Protocols Checklist and [place] Joint Committee on Cancer (AJCC), Staging Manual, 8th Ed. This case was seen in consultation with Dr. Cervantes of [employer]. Case has been reviewed in consultation with Dr. Leavitt who concurs with the above diagnosis. IDC:SJ FROZEN SECTION DIAGNOSIS A. Posterior uterine growth, biopsy: Consistent with endometrial polyp with hyperplasia without atypia. SJ:cc 05/20/18 GROSS DESCRIPTION A. Received in fixative is one container labeled with the patient's name and designated posterior uterine growth. Received fresh for frozen section diagnosis is a triangular polypoid piece of couch pink tissue measuring 4.5 x 3 x 1 cm. Sections reveal focally cystic cut surfaces. No obvious well-defined mass is identified. Two sections are submitted for frozen section diagnosis. The entire specimen is submitted in five cassettes as follows: 1 AND 2 - frozen section, 3 to 5 - rest of the specimen. SJ:sp 05/20/18 B. Received in fixative is one container labeled with the patient's name and designated uterus, cervix and fallopian tubes. The specimen consists of a uterus with right and left fallopian tubes. The uterus with cervix measures 18 x 15 x 10 cm and weighs 953 gm. The ectocervix is unremarkable and the cervical os is oval in contour. The endocervical canal measures 5 cm in length and is grossly unremarkable. The entire endometrial surface is irregular, granular and friable and measures 12 x 9 cm. Serial sections through this friable surface reveals the process to continue into the myometrium (greater than 2/3 thickness of myometrial extension). The serosal aspect of the specimen is smooth and glistening. No disruption of the serosal surface is grossly identified. A small hole-like area is present in the fundus of the gland measuring 1 cm in greatest dimension. Serial sections through this hole do not reveal extension into the endometrial surface. The appearance of the involvement of endometrium and myometrium resembles a friable mass that is light couch-white in color. This process is located approximately 6.5 cm from the ectocervical margin. The right ovary is light couch, smooth and glistening and cystic and measures 4.8 x 3.5 x 2.6 cm. The adjacent fallopian tube measures 7 cm in length and 0.7 cm in average diameter and focally displays adhesion to the myometrium. The left crinkled ovary is partly cystic and measures 3.5 x 2.5 x 2.2 cm. The adjacent left fallopian tube measures 5.5 cm in length and 0.7 cm in average diameter. Serial sections of the right cystic ovary reveal clear fluid. The cyst wall averages 0.1 cm in thickness. The fimbrial ends of both fallopian tubes are grossly unremarkable and elongated fibrous tissue is attached to the serosal surface in its posterior portion measuring 5 x 0.5 x 0.5 cm and grossly resembles area of fibrous adhesion. The serosal surface of the uterus is inked. Carder Blankets sections are submitted as follows: 1 - anterior cervix, 2 - posterior cervix, 3 through 6 - right ovary and fallopian tube, 7 through 9 - left fallopian tube and ovary, 10 through 15 - anterior endometrium/myometrium, 18 through 21 - posterior endometrium/myometrium. / AM:sp 05/22/18 TC:0 CPT: 85592, 41925, 58596, 60545 HEADER OPERATION: Total abdominal hysterectomy, bilateral salpingo-oophorectomy PRE-OP DIAGNOSIS: Menorrhagia and submucous leiomyoma of uterus; complex EM hyperplasia with minimal atypia TISSUE SUBMITTED: A. Posterior uterine growth FS, B. Uterus, cervix, bilateral fallopian tubes, bilateral ovaries MICROSCOPIC DESCRIPTION Slides are reviewed. MICROSCOPIC DIAGNOSIS A. Posterior uterine growth, biopsy: Endometrial polyp with complex endometrial hyperplasia without atypia. B. Uterus, hysterectomy: Endometrial adenocarcinoma, endometrioid type, FIGO I, with myometrial invasion. AM:miya 06/04/18 Signed Sacha Vang 06/04/18 <signature on file> Performed By: #### PHYST #### [facility] [address] [facility] [place], [address] DISCHARGE INSTRUCTION Observed: 05/20/2018 Status: F Source: [place] 2:29 PM [facility] Medical Records Department [address] [place] [id number] Instructions for Home/Discharge Instructions 05/20/18 1428 MR#: [id number] Acct: [id number] Name: BLANCA BURDEN Rep #: [id number] : 1970 48 From: Rina Finley MD PCP: Christ Mckenzie md Status: ADM IN Discharge Diet: No Restrictions Discharge Activity: Return to Normal Activity - do what you feel comfortable, but do not over do it. You may climb stairs, just use caution and hold the railing., May Not Drive - for a few days or while taking narcotic pain medications., May Shower, May Take a Tub Bath May resume sexual activity in: 6 weeks - nothing in the vagina. Lifting Restrictions: 25 pounds for 6 weeks. Call your doctor if your incision/area has: Continuous Slow Oozing, Sudden Increased Bleeding, Increased Pain/ Swelling, Increased Redness, Foul Smelling Discharge Call your doctor if you observe: Fever of 101 or Higher, Inability to urinate, Inability to have a bowel movement, Using more than one pad per hour, - - Some vaginal bleeding may be noted for up to 4-8 weeks. Cleanse incision/area with: - - Let the soapy water run over your incision, rinse and pat dry. Additional Dressing/Incision Instructions:: The white strips (Steri Strips) on your incision will fall off on their own. Allergies/Adverse Reactions: Allergies No Known Allergies Allergy (Verified 05/16/18 12:48) Medications to take at Discharge Ferrous Sulfate [Iron] 325 mg PO DAILY 05/16/18 Multivitamin [Multiple Vitamins] 1 each PO DAILY 05/16/18 Norethindrone Acetate 10 mg PO DAILY 05/16/18 Docusate Sodium [Colace] 100 mg PO BID PRN PRN #60 cap 05/20/18 Estradiol 1 mg PO DAILY #100 tab 05/20/18 Oxycodone [Oxyir] 5 mg PO Q6H PRN PRN 7 Days #20 tab 05/20/18 The following prescriptions were given: Oxycodone [Oxyir] 5 mg PO Q6H PRN PRN 7 Days #20 tab PRN Reason: Severe Pain (-04/17) Docusate Sodium [Colace] 100 mg PO BID PRN PRN #60 cap PRN Reason: Constipation Estradiol 1 mg PO DAILY #100 tab Primary Care Physician: Christ Mckenzie [Primary Care Provider] - Test Results: Test results from this visit will be discussed in further detail at your follow-up appointment, if applicable. Please Follow Up With: Rina Finley MD - [phone] When: in 2 weeks, please call to make an appointment. 05/20/18 5215 <Electronically signed by Rina Finley MD> Date Rina Finley MD CC: md Chirst Mckenzie BEDSIDE GLUCOSE Collected: 05/20/2018 Status: F Source: [place] 11:06 AM [facility] TYPE CODE TESTS RESULT OUT OF RANGE REFERENCE UNITS LAB L501.080 70-110 mg/dL Normal BEDSIDE GLU 98 Result Comment: MANAGEMENT OF PATIENT CARE PER NURSING PROTOCOL Performed By: #### L501.080 #### [facility] Point of Care [address] [place], [place] [address] ,URINE Collected: 05/20/2018 Status: F Source: [place] 10:46 AM [facility] Order Comment: Reason for Laboratory Test PRE OP TYPE CODE TESTS RESULT OUT OF REFERENCE UNITS RANGE LAB L400.8000 Negative Normal HCGUQUAL Negative Result Comment: Very dilute urine specimens, as indicated by a low specific gravity, may not contain sales representative girls' apparel levels of hCG. If is still suspected, a first morning urine specimen should be collected 48 hours later and tested. Performed By: #### L400.7600 #### [facility] [address] [facility], [address] IMMUNOHISTOCHEMISTRY Observed: 05/20/2018 Status: F Source: [place] 12:00 AM [facility] [place] Patient: BLANCA BURDEN : 1970 (48/F) Acct Num: [id number] Phys: Rina Finley MD Unit Num: [id number] Loc: MS2 [id number] Specimen: [id number] Received: 05/23/18 9602 Spec Type: IMMUNO THIS IS A CORRECTED REPORT TISSUES 1 TISSUES: Uterus, NOS SPECIMEN INFORMATION: Tissue Source: B. Uterus, cervix, bilateral fallopian tubes, bilateral ovaries Clinical Info: Adenocarcinoma Specimen Number: [id number] CPT code: 15594, 92700 x17 METHODOLOGY: Deparaffinized sections of prefer/formalin-fixed tissue or PAP/DQ stained slides are incubated with monoclonal/polyclonal antibodies/oligonucleotide probes. Localization is made via biotin free immunoperoxidase method. Appropriate controls are performed and reacted as expected. Results on target cell population are indicated in the following table: RESULTS: ANTIBODY / CLONE RESULT Block B20 ER (6F11) positive, rare NJ (1E2) positive AE1-3 (AE1/AE3/PCK26) positive CK7 (OV-TL12/30) negative CK8 (46lxbuO85) positive CK20 (KS20.8) negative 34BE12 (34BE12) positive, focal Vimentin (V9) positive, dim CK19 (A53-B/A2.26) positive Ki-67 (30-9) positive, low CEA (11-7/TF-3HB-1) negative ARIANNA (E29) positive P53 (DO-7) negative MLH1 (M1) positive MSH2 (25D12) positive, dim MSH6 (44) positive, variable PMS2 (FIA7690) positive CA125 (OC125) positive, focal These tests were developed and their performance characteristics determined by [facility]. They may not have been cleared or approved by the U.S. Food and Drug Administration. The FDA has determined that such clearance or approval is not necessary. INTERPRETATION: Uterus, hysterectomy: Endometrial adenocarcinoma, endometrioid type, FIGO grade I/III. Result of Microsatellite Instability Study: Negative (no loss of mismatch protein; no microsatellite instability detected). AM:miya 06/04/18 AM:miya 06/07/18 Case has been reviewed in consultation with Dr. Leavitt who concurs with the above diagnosis. IDC: PHYSICIAN AND INSTITUTION [place] [id number] Signed Sacha Vang 06/07/18 <signature on file> Performed By: #### PIMM #### [facility] [address] [place], [address] HISTORY AND PHYSICAL Observed: 05/19/2018 Status: F Source: [place] EXAM 7:23 PM [facility] Medical Records Department [address] [place] [address] History and Physical 05/19/18 192 MR#: [id number] Acct: [id number] Name: BLANCA BURDEN Rep #: [id number] : 1970 48 From: Rina Finley MD PCP: Christ Mckenzie md Status: PRE IN Y Location: [facility] History and Physical Date of Admission: 05/20/18 Surgical History and Physical Blanca Burden, a 48 year old female 3 0 0 1 3, presents for ANUP/BS on May 20, 2018 at 12:15. -- Extremely Heavy Menses; Daily Bleeding for 1 Year; Complex EM Hyperplasia with minimal Atypia -- Blanca presents here today with spouse(Rina) as referral from Dr. Christ Mckenzie for heavy bleeding with clots and cramping. 48 y.o. G 2 P 3 non-smoker with history in the last year of having some type of bleeding everyday, then would start with heavy flow, clots and cramping at times that she thinks is my period. Heavy Bleeding which began Started Saturday 05/12. Blanca claims it started suddenly and has been present 4 months. It occurs with menses. It is located in the vagina.; It is located in the lower abdomen. Blanca characterizes the quality cramping.; Blanca characterizes the quality Clots, heavy flow. Severity is moderate and not improving; Associated signs and symptoms are has been bleeding for about a year almost daily. Additional comments are: Referred by Dr. Christ Mckenzie.; Additional comments are: u/s shows 9 cm submucous fibroid; EMBx pending. MEDICATIONS HISTORY: ALLERGIES: No Known Allergies Infections - Chicken pox and Measles Illnesses - no serious past illnesses Accidents - None Hospitalizations - see surgery Review of Systems: GENERAL - Denies fever, or chills SKIN - Denies skin changes EYES - Denies visual changes EARS - Denies difficulty hearing NOSE - Denies nasal congestion or bleeding MOUTH - Denies sore throat or difficulty swallowing NECK - Denies pain or swelling RESPIRATORY - Denies shortness of breath or wheezing CARDIOVASCULAR - Denies palpitations or chest pain GASTROINTESTINAL - Denies nausea, vomiting, diarrhea, constipation GENITOURINARY - Denies dysuria, frequency of urination, incontinence of urine MUSCULOSKELETAL - Denies joint or muscle pain NEUROLOGICAL - Denies localized numbness or weakness PSYCHIATRIC - Denies depression or anxiety ENDOCRINE - Denies heat or cold intolerance, weight loss or gain HEMATO-IMMUNOLOGIC - Denies excesive bleeding with cuts SOCIAL HISTORY: Alcohol Use - None Smoking - Never Diet - no special diet Lifestyle - moderate stress lifestyle and Exercise - active work Seat Belt Use - occasional Employer - [employer] Illicit Drug Use - None Sexual Activity - Spouse-Sig Other Name - Rina Burden Spouse-Sig Other Occupation - Self-Employed --Draw Maker Children Name(s) - 3 children(including set of twins) Control - Natural Family Planning FAMILY HISTORY: MENSTRUAL HISTORY: LMP Known?- DefiniteAmount/Duration - excess amount, Regularity - Irregular, Frequency - variable days, LMP - 05/12/18, Age Onset Menarche - 17 PAST PREGNANCIES: Total Pregnancies - 2; Full Term Pregnancies - 3; Premature - 0; Abortions, Induced - 0; Abortions, Spontaneous - 0; Ectopics - 0; Multiple Births - 1; Living Children - 3 SURGICAL HISTORY: 1. 05/14/1993 ; Joel Burden MD - 2. 11/13/1996 ; Joel Burden MD - 3. 2002 (L) Foot Surgery ; Dr. Munguia - PHYSICAL EXAM BP- 158/94 Sitting, Right arm, large cuff Weight- 254.60972 lbs Height- 65 inch BMI:42.36 CONSTITUTIONAL - NAD, well nourished, and well developed SKIN - No rash, lesions, or ulcers HEENT - Normocephalic, PERRLA, EOMI NECK - No nodes, no nuchal rigidity and thyroid normal size and texture LYMPH NODES - Palpation of lymph nodes in neck and groins within normal limits LUNGS - CTA x2 without wheezes, crackles or rales CARDIAC - Regular rate and rhythm without rubs, murmurs, or gallops BREAST - No dominant masses, no tenderness, no axillary adenopathy, no nipple discharge, no skin changes ABDOMEN - Without hepatosplenomegaly, distention, masses, rebound, or guarding; normal bowel sounds; no hernias EXTREMITIES - No edema or calf tenderness NEUROLOGICAL - Cranial nerves II-XII grossly intact PSYCHIATRIC - A and O to time, place, person, mood and affect External Genitial Vagina - non-tender without lesions Urethra/Urethral Meatus - non-tender Bladder - non-tender Vagina - vaginal paula are pink and moist without loss of rugae and no evidence of atropy and blood in vagina Cervix - without cervical motion tenderness and has normal size and features without evident lesions Uterus - enlarged uterus 15 wks and greater Adnexa - clear without massess or tenderness ASSESSMENT/PLAN: 1. Menorrhagia and Submucous Leiomyoma Of Uterus; Complex EM Hyperplasia with minimal atypia U/S shows large submucous fibroid. Aygestin taper to curb bleeding. Discussed options for treatment and patient desires we proceed with ANUP/BS. Discussed RBAs and all questions answered. 05/19/181922 <Electronically signed by Rina Finley MD> Date Rina Finley MD Cosigner Signature: Date (if applicable) CC: md Christ Mckenzie; Rina Finley MD Signed CBC-COMPLETE BLOOD CNT Collected: 05/15/2018 Status: F Source: [place] NO DIFF 3:19 PM [facility] [place] CODE TESTS RESULT OUT OF RANGE REFERENCE UNITS LAB L100.1000 4.4-11.0 K/mm3 Normal WBC 9.3 LAB L100.1200 4.2-5.4 M/mm3 Low RBC 4.16 LAB L100.1300 12.0-15.0 g/dl Normal HGB 12.9 LAB L100.1400 37-47 % Normal HCT 37.3 LAB L100.1500 81-99 fL Normal MCV 89.7 LAB L100.1600 27.0-32.0 pg Normal MCH 31.0 LAB L100.1700 32-36 g/gl Normal MCHC 34.6 LAB L100.1810 11.6-14.6 % Normal RDW CV 13.0 LAB L100.1820 35.1-43.9 fl Normal RDW SD 42.1 LAB L100.1900 150-450 K/mm3 Normal PLT 311 LAB L100.2000 6.2-12.0 fl Normal MPV 10.2 Performed By: #### L100.0500 #### [facility] [address], [address] PROTHROMBIN TIME W/INR Collected: 05/15/2018 Status: F Source: [place] 3:19 PM [facility] [place] TYPE CODE TESTS RESULT OUT OF RANGE REFERENCE UNITS LAB L300.4150 11.7-14.9 SECONDS Normal PROTIME 13.5 LAB L300.4200 Normal INR 1.0 Performed By: #### L300.3900, L300.4310 #### [facility] [address] [facility] [facility] [address] PARTIAL THROMBOPLAST Collected: 05/15/2018 Status: F Source: [place] TIME 3:19 PM [facility] [place] TYPE CODE TESTS RESULT OUT OF RANGE REFERENCE UNITS LAB L300.4310 24.1-36.2 Seconds Normal PTT 30.8 Performed By: #### L300.3900, L300.4310 #### [facility] [address] [facility], [address] SERUM CREATININE AND Collected: 05/15/2018 Status: F Source: [place] GFR 3:19 PM [facility] [place] TYPE CODE TESTS RESULT OUT OF RANGE REFERENCE UNITS LAB L501.1100 0.55-1.02 mg/dL Normal 0.89 CREAT,SERUM Result Comment: The validity of the calculated GFR AND GFRAA in patients over 70 years has not been determined. Clinical correlation is essential. LAB L501.1110 >60 mL/min Normal EST GFR 72 Result Comment: Non- GFR Calc LAB L501.1115 >60 mL/min Normal EST GFR - AA 88 Result Comment: GFR Calc Performed By: #### L501.1105 #### [facility] [address] [facility], [address] TYPE AND SCREEN Collected: 05/15/2018 Status: F Source: [place] 3:19 PM [facility] [place] Order Comment: Surgery Date: 05/20/18 Hx of Preganancy in last 3 Months No Ever experience any problems with transfusion(s)? N Hx of Transfusion in last 3 Months N Reason for Type AND Screen/Red Cells: SURGERY SURGICAL PROCEDURE: 96729 TYPE CODE TESTS RESULT OUT OF RANGE REFERENCE UNITS LAB B10.0800 A Normal BLOOD TYPE GEL NEGATIVE LAB B100.4000 Normal Antibody NEGATIVE Screen Performed By: #### B101.7475 #### [facility] [address] [place], [address] ENDOMETRIAL BX/CURETTINGS Observed: 05/15/2018 Status: F Source: [place] 1:30 PM [facility] [place] Patient: BLANCA BURDEN : 1970 (48/F) Acct Num: [id number] Phys: Rina Finley MD Unit Num: [id number] Loc: LABSPEC Specimen: [id number] Received: 05/15/18 - 1354 Spec Type: ENDOM BX/C TISSUES 1 TISSUES: Endometrium, NOS COMMENT Focal morular metaplasia is also noted. Clinical correlation and appropriate follow up are necessary. This case is discussed with Dr. Finley on 05/16/18. Case has been reviewed in consultation with Dr. Vang who concurs with the above diagnosis. IDC:AM GROSS DESCRIPTION Received in fixative is one container labeled with the patient's name and designated EMB. The specimen consists of multiple fragments of hemorrhagic soft tissue mixed with blood clot that in aggregate measure 5 x 3 x 0.3 cm. The entire specimen is submitted in two cassettes. / CANDIDA:miya 05/15/18 TC:5 CPT: 80475 HEADER OPERATION: Endometrial biopsy PRE-OP DIAGNOSIS: N92.0 TISSUE SUBMITTED: Endometrial biopsy MICROSCOPIC DESCRIPTION Slides are reviewed. MICROSCOPIC DIAGNOSIS Endometrial biopsy: Complex endometrial hyperplasia with minimal atypia. See comment. CANDIDA:miya 05/16/18 Signed Maury Leavitt 05/16/18 <signature on file> Performed By: #### PEMB #### [facility] [address] [place], [address] ALLERGIES ALLERGIES DATE TYPE / CODE NAME / CODE REACTION SEVERITY SOURCE 06/12/2018 Drug No Known Unknown [facility] Allergy/4160 Allergies/F00 Hospital 49387(SNOMED [id number](RXNOR Repository CT) M) ENCOUNTERS ENCOUNTERS ADMIT/DISCHARGE ACCOUNT ADMITTING ENCOUNTER LOCATION SOURCE NUMBER CLASS 06/12/2018/ [id number] Srini, Inpatient [place] Kryst[place] 8 0 [place] Encounter [facility] ing:PCURoom: Repository [id number]: 1 06/12/2018 [id number] Khangeletsky, Ambulatory BMSBuilding:B [place] 5 [place].CF.[facility] Repository 06/12/2018 [id number] Tereletsky, Ambulatory BMSBuilding:B [place] 2 [place].Counts include 234 beds at the [facility] Repository 06/12/2018 [id number] Tereletsky, Ambulatory BMSBuilding:B [place] 9 [place] MS.CF.[facility] Repository 06/12/2018 [id number] Tereletsky, Ambulatory BMSBuilding:B [place] 1 [place].Counts include 234 beds at the [facility] Repository 06/10/2018 [id number] Ambulatory [place] 2 [facility] ing:CT Repository 05/20/2018/ [id number] Rina Finley Inpatient [place] 8 0 Encounter [facility] ing:KQ2Mnju: Repository [id number]: 1 05/15/2018 [id number] Ambulatory [place] 0 [facility] ing:LABSPEC Repository PAYERS PAYERS ENCOUNTER GUARANTOR PAYER SUBSCRIBER SOURCE 06/12/2018 RINA [id number] TR Insurance:DOMINGA CHRISTIANSON: [address] Number: [id number] [address]Oql: [id number] Repository Date:2018-06-12 () 06/12/2018 Secondary NOT GIVENUNK [place] Insurance:SELF PAY [facility] Number: Effective Repository Date:2018-06-12 06/12/2018 RINA H Primary BLANCA [id number] TR [facility] [address] Number: [id number] View Regional Medical Center [address]Ykg: [id number] Repository Date:2018-06-12 () 06/12/2018 Secondary NOT GIVENUNK [place] Insurance:SELF PAY [facility] Number: Effective Repository Date:2018-06-12 06/12/2018 RINA H Primary NOT GIVENUNK [place] [id number] TR Insurance:SELF PAY [address] [place] [address]Qnb: Number: Effective Repository Date:2018-06-12 () 06/12/2018 RINA H Primary BLANCA Mcclelland [id number] TR Insurance:[facility]: [address] Number: [id number] View Regional Medical Center [address]Iko: [id number] Repository Date:2018-06-12 () 06/12/2018 Secondary NOT GIVENUNK [place] Insurance:SELF PAY [facility] Number: Effective Repository Date:2018-06-12 06/12/2018 RINA H Primary NOT GIVENUNK [place] [id number] TR Insurance:SELF PAY [address] [place] [address]Mvb: Number: Effective Repository Date:2018-06-12 () 06/10/2018 RINA H Primary Insurance:[facility] BLANCA Mcclelland [id number] TR PACKAGE PLANPolicy MILLERDOB: [address], Number: [id number] View Regional Medical Center [address]Rbk: [id number] Repository Date:2018-06-07 () 06/10/2018 Secondary NOT GIVENUNK [place] Insurance:SELF PAY [facility] Number: Effective Repository Date:2018-06-07 05/20/2018 RINA H Primary Insurance:[facility] BLANCA Mcclelland [id number] TR PACKAGE PLANPolicy MILLERDOB: [address], Number: [id number] View [facility] [address]Qif: [id number] Repository Date:2018-05-15 () 05/20/2018 Secondary NOT GIVENUNK [place] Insurance:SELF PAY [facility] Number: Effective Repository Date:2018-05-15 05/15/2018 RINA Becker Primary NOT GIVENUNK [place] [id number] TWP Insurance:SELF PAY [address], Number: Effective Repository [place] [id number]: Date:2018-05-15 ()
== END ==
PROVIDERS: Family Provider Family Medicine; PCP Family Medicine; Referring Provider Obstetrics & Gynecology Gynecologic Oncology; Visit Provider Obstetrics & Gynecology Gynecologic Oncology
DX: C54.1 Malignant neoplasm of endometrium (principal)
CPT/HCPCS: 71260; 74177; Q9967

== ENCOUNTER 2018-06-12 09:36 | Inpatient (IN) | payer OTHER, SELFPAY ==
[2018-06-12] VITALS (12 sets, daily range): BP systolic 124–157; BP diastolic 72–92; PULSE 65–121; RESP 16–18; TEMP 36.4–37.1; O2SAT 95–97; BMI 40.7; BMI 39.7
--- NOTE | 2018-06-12 09:55 | ED.VISSUMM ---
- ER Visit Summary Date of Service: 06/12/18 Chief Complaint: Pulmonary embolism History of Present Illness: The patient is a 48 F who presents after having an outpatient CT scan done 2 days ago which showed a pulmonary embolism. Patient had a recent hysterectomy which showed uterine malignancy. Patient had an outpatient CT scan of the chest, abdomen, and pelvis which was recommended to be done by her gynecology oncologist. This showed a pulmonary embolism along with a mass on the head of the pancreas and a mass in the right kidney. Currently, the patient denies any symptoms. Patient denies any chest pain or shortness of breath. Patient denies any palpitations. Patient was referred to the emergency department for admission and further evaluation of her pancreatic and kidney masses as well as treatment of her pulmonary embolism. Physical Examination: Vital signs are stable. Patient is afebrile. Patient is in no acute distress. Oral mucosa is pink and moist. Neck is supple. Trachea is midline. There is no JVD noted. Heart was regular rate and rhythm. Lungs are clear and equal bilaterally. There is good respiratory effort noted. Abdomen is soft. Bowel sounds are normal. There is no tenderness. There is no guarding noted. Cranial nerves II through XII are intact. There are no focal motor or sensory deficits noted. The remaining physical exam is within normal limits. Test Results: CBC, comprehensive metabolic profile, PT with INR, and PTT were obtained and were all within normal limits. Emergency Department Course and Treatment: Case was discussed with the hospitalist. Patient will be admitted to the hospital here to the PCU. Patient and family understood and were agreeable with the plan. All questions were answered. Disposition: Admit to hospital Impression: 1. Pulmonary embolism 2. Pancreatic mass 3. Right renal mass This note was generated with [employer] dictation software. It may contain incorrect words, spelling, and punctuation that were not noted in review of the chart prior to signing ED Disposition - Plan for ED Patient: Chief Complaint: Shortness of Breath Referrals: Christ Mckenzie [Primary Care Provider] -
[2018-06-12 10:09] LABS: Mucous, Urine 0 SEEN /hpf (<or=2+)
[2018-06-12 10:12] LABS: Absolute Lymphocyte Count 1.56 X10^3/ul (0.83-4.51); Absolute Neutrophil Count 2.1 X10^3/uL (2.0-7.7); Basophil# 0.02 X10^3/uL; Basophil% 0.5 % (0-1); Eosinophil# 0.19 X10^3/uL; Eosinophils% 4.5 % (0-5); Hematocrit 37.9 % (37-47); Hemoglobin 13.1 g/dl (12.0-15.0); Lymphocyte # 1.56 X10^3/ul (4.0); Lymphocyte % 37.1 % (19-41); Mean Corp Hgb Conc 34.6 g/gl (32-36); Mean Corpuscular Hgb 30.8 pg (27.0-32.0); Mean Corpuscular Volume 89.2 fL (81-99); Mean Platelet Vol. 9.7 fl (6.2-12.0); Monocyte# 0.33 X10^3/uL; Monocyte% 7.8 % (0-10); Neutrophil # 2.11 X10^3/uL (2.7-7.7); Neutrophil % 50.1 % (47-70); Platelet Count 287 K/mm3 (150-450); RBC Distribution Width CV 13.5 % (11.6-14.6); RBC Distribution Width SD 43.2 fl (35.1-43.9); Red Blood Count 4.25 M/mm3 (4.2-5.4); White Blood Count 4.2 K/mm3 (4.4-11.0)
[2018-06-12 10:15] LABS: Color, Urine Yellow (Yellow); Glucose, Dipstick Normal (Normal); Ketone-Dipstick Negative (Negative); Leukocyte Esterase-Dipstick 25 /ul (Negative); Nitrite-Dipstick Negative (Negative); Occult Blood-Urine Negative /ul (Negative); Protein-Dipstick Negative (Negative); Urine Bilirubin Dipstick Negative (Negative); Urine Clarity Clear (Clear); Urine Urobilinogen Normal (Normal)
[2018-06-12 10:18] LABS: Bacteria 1+ /hpf (None Seen); POSITIVE COUNT NO; POSITIVE DIFFERENTIAL NO; POSITIVE MORPHOLOGY NO; Red Blood Cells-Urine 0-5 SEEN /hpf (0-5); Squamous Epithelial Cells - UA 0-5 SEEN /hpf (5-10); White Blood Cells 0-5 SEEN /hpf (0-5)
[2018-06-12 10:27] LABS: ALB/GLOB Ratio 1.1 RATIO (0.9-2.4); AST(SGOT) 27 U/L (15-37); Alanine Aminotransfer ALT/SGPT 23 U/L (13-56); Albumin, Serum 4.1 g/dL (3.2-5.0); Alkaline Phosphatase 52 U/L (45-117); Anion Gap 8 (5-15); BUN 8 mg/dL (7-18); BUN/Creat Ratio 10.2 RATIO (10-20); Calcium,Total 9.1 mg/dL (8.5-10.1); Chloride 106 mmol/L (98-107); Creatinine, Serum 0.79 mg/dL (0.55-1.02); EST Glomerular Filtration Rate 83 mL/min (>60); Est Glom Filt Rate - Afr Amer 101 mL/min (>60); Estimated Creatinine Clearance 79.22 ml/min; Globulin 3.8 g/dL (2.2-4.2); Glucose 110 mg/dL (74-106); Potassium 3.7 mmol/L (3.5-5.1); Protein, Total 7.9 g/dL (6.4-8.2); Sodium Level 141 mmol/L (136-145)
[2018-06-12 10:36] LABS: Partial Thromboplast Time 29.7 Seconds (24.1-36.2)
--- NOTE | 2018-06-12 11:45 | ED.RN ---
lpt was given 8000 unit heparin bolus at this time per dr delgado and dr mcgregor. unable to scan the heparin bolus weight based protocol.
[2018-06-12] MEDS: Heparin Injection (Vial) 5,000 UNIT/ML VIAL 8000 UNIT IV (11:55)
[2018-06-12] MEDS: HEPARIN/D5w 25,000 UNITS 25,000 UNITS/250 ML IV.SOLN. 15 UNITS IV (12:18)
--- NOTE | 2018-06-12 12:26 | PCM.CONS.GEN ---
Reason for Consult Date of Consultation: 06/12/18 Reason for Consultation: Pulmonary embolism History of Present Illness: The patient is a 48-year-old female, with a history as outlined below, who presented to the emergency department at the urging of an outside provider after abnormal chest and abdominal imaging was obtained 2 days ago. In mid May, the patient underwent a total abdominal hysterectomy with bilateral salpingo-oophorectomy, which revealed evidence of endometrial adenocarcinoma. The patient was subsequently referred to Dr. Vickey Fisher of [facility] at [facility]. CT scan of the chest, abdomen and pelvis were subsequently ordered. Those imaging studies were completed on June 10 and revealed evidence of a left basilar pulmonary embolism, along with the pancreatic head mass. Therefore, the patient was referred back to the emergency department for further evaluation and treatment of her PE. The patient denies a history of prior venous thromboembolic disease. She currently denies any shortness of breath or chest pain. On presentation to the emergency department, the patient was noted to be afebrile, hemodynamically stable and maintaining appropriate oxygen saturations on room air. Initial laboratory evaluation was largely unremarkable. The case was discussed with Dr. Morales of radiology with regards to the need for percutaneous needle biopsy of the pancreatic head mass. There are currently tentative plans for the patient to undergo a biopsy sometime tomorrow. Therefore, the plan has been to start the patient on a continuous heparin infusion in the interim. We were asked to weigh in on the need for potential IVC filter placement. Past Medical History Allergies No Known Allergies Allergy (Verified 06/12/18 09:37) Home Medications: Ambulatory Orders Medication Instructions Recorded Norethindrone Acetate 10 mg PO DAILY 05/16/18 Aspirin [Aspirin, Baby] 81 mg PO DAILY@0800 06/12/18 Smoking Status: Never smoker Review of Systems Constitutional: Denies: Chills, Fever, Weight Change HEENT: Denies: Head Aches, Sinus Congestion, Sinus Drainage Cardiovascular: Denies: Chest Pain, Palpitations Respiratory: Denies: Cough, Shortness of breath at rest, Sputum production Gastrointestinal: Denies: Abdominal Pain, Nausea, Vomiting Genitourinary: Denies: Dysuria Musculoskeletal: Denies: Joint Pain, Joint Tenderness Skin: Denies: Rash, Wounds Neurological: Denies: Numbness, Tingling, Focal weakness Psychiatric: Denies: Anxiety, Depression, Homicidal Ideations, Suicidal Ideations Hematologic/ Lymphatic: Reports: Hx of blood clot Objective: The patient's most recent lab work, culture data and imaging studies have all been personally reviewed. - Physical Exam General: Alert, Oriented x3, Cooperative, No apparent distress HEENT: Atraumatic, PERRLA, Normocephalic Oral: Moist Mucosa, No Gingival or Mucosal Lesions/ Ulcerations Neck: Supple, No Nodes, Trachea Midline Lungs: Normal air movement, No rhonchi, No wheeze, No rales Cardiovascular: Regular rate, Regular Rhythm, Normal S1, Normal S2, No murmurs Abdomen: Bowel Sounds Present, Soft, Non Tender, Obese Extremities: No clubbing, No cyanosis, No edema Skin: No rashes, No breakdown Musculoskeletal: No Tenderness to Palpation of Joints or Extremities, No Muscle Wasting Lymphatic: No Cervical, Supraclavicular, or Inguinal Adenopathy Neurological: Cranial nerves II-XII grossly intact, Neuro grossly intact Psych/Mental Status: Alert and oriented to time, place, person, mood and affect Vital Signs Temp Pulse Resp BP Pulse Ox 36.4 C L 80 16 132/84 H 95 06/12/18 09:37 06/12/18 11:26 06/12/18 11:26 06/12/18 11:26 06/12/18 11:26 Oxygen Delivery Method Room Air Weight: 245 lb Body Mass Index (BMI) 40.7 Laboratory Tests Past 24 Hrs 06/12/18 06/12/18 06/12/18 10:00 10:00 10:00 WBC 4.2 L RBC 4.25 Hgb 13.1 Hct 37.9 MCV 89.2 MCH 30.8 MCHC 34.6 RDW 13.5 RDW Differential 43.2 Plt Count 287 MPV 9.7 Immature Gran % (Auto) 0.000 Neut % (Auto) 50.1 Lymph % (Auto) 37.1 [place] % (Auto) 7.8 Eos % (Auto) 4.5 Baso % (Auto) 0.5 Absolute Neuts (auto) 2.1 Absolute Lymphs (auto) 1.56 Total Counted Not Reportable PT 13.0 INR 1.0 APTT 29.7 Sodium 141 Potassium 3.7 Chloride 106 Carbon Dioxide 27.0 Anion Gap 8 BUN 8 Creatinine 0.79 Estim Creat Clear Calc 79.22 Est GFR (MDRD) Af Amer 101 Est GFR (MDRD) Non-Af 83 BUN/Creatinine Ratio 10.2 Glucose 110 H Calcium 9.1 Total Bilirubin 0.40 AST 27 ALT 23 Alkaline Phosphatase 52 Total Protein 7.9 Albumin 4.1 Globulin 3.8 Albumin/Globulin Ratio 1.1 Urine Color Urine Clarity Urine pH Ur Specific [place] Urine Protein Urine Glucose (UA) Urine Ketones Urine Occult Blood Urine Nitrite Urine Bilirubin Urine Urobilinogen Ur Leukocyte Esterase Urine RBC Urine WBC Ur Squamous Epith Cells Urine Bacteria Urine Mucus 06/12/18 10:00 WBC RBC Hgb Hct MCV MCH MCHC RDW RDW Differential Plt Count MPV Immature Gran % (Auto) Neut % (Auto) Lymph % (Auto) [place] % (Auto) Eos % (Auto) Baso % (Auto) Absolute Neuts (auto) Absolute Lymphs (auto) Total Counted PT INR APTT Sodium Potassium Chloride Carbon Dioxide Anion Gap BUN Creatinine Estim Creat Clear Calc Est GFR (MDRD) Af Amer Est GFR (MDRD) Non-Af BUN/Creatinine Ratio Glucose Calcium Total Bilirubin AST ALT Alkaline Phosphatase Total Protein Albumin Globulin Albumin/Globulin Ratio Urine Color Yellow Urine Clarity Clear Urine pH 6.0 Ur Specific [place] 1.010 Urine Protein Negative Urine Glucose (UA) Normal Urine Ketones Negative Urine Occult Blood Negative Urine Nitrite Negative Urine Bilirubin Negative Urine Urobilinogen Normal Ur Leukocyte Esterase 25 H Urine RBC 0-5 SEEN Urine WBC 0-5 SEEN Ur Squamous Epith Cells 0-5 SEEN Urine Bacteria 1+ Urine Mucus 0 SEEN Assessment/Plan RECOMMENDATIONS: 1. Continue heparin drip in preparation for planned biopsy procedure tomorrow. 2. Send hypercoagulable workup prior to initiating anticoagulation. 3. Would favor transitioning to Lovenox once the patient's procedural workup has been completed. IMPRESSIONS: 1. Pulmonary embolism The patient was recently diagnosed with a pulmonary embolism in the setting of a newly diagnosed endometrial adenocarcinoma. She has yet to be started on an anticoagulation regimen. Given the need to obtain a tissue biopsy of the pancreatic mass noted on CT abdomen/pelvis, agree with starting a heparin infusion, while awaiting completion of the procedure. Would plan to send a hypercoagulable workup prior to the initiation of the patient's anticoagulation regimen. Would favor transitioning to Lovenox after the patient's procedure workup has been completed. There is no indication for IVC filter placement, as the patient does not have a contraindication to systemic anticoagulation. 2. Newly diagnosed endometrial adenocarcinoma/pancreatic head mass/adenopathy Tentative plans for the patient to undergo a percutaneous needle biopsy tomorrow in radiology. The patient's heparin will need to be placed on hold prior to the procedure accordingly. 3. Obesity Complicates care, management, recovery and prognosis. Weight loss through dietary modification and a graded exercise regimen is strongly encouraged. This note was generated with [employer] / [employer] dictation software. It may contain incorrect words, spelling, and punctuation that were not noted in checking the note before signing. Code Visit Inpatient E&M: 49414 Init Hosp L2
--- NOTE | 2018-06-12 12:31 | CON.PCM_ITS ---
Reason for Consult Date of Consultation: 06/12/18 Reason for Consultation: Pulmonary embolism History of Present Illness: The patient is a 48-year-old female, with a history as outlined below, who presented to the emergency department at the urging of an outside provider after abnormal chest and abdominal imaging was obtained 2 days ago. In mid May, the patient underwent a total abdominal hysterectomy with bilateral salpingo- oophorectomy, which revealed evidence of endometrial adenocarcinoma. The patient was subsequently referred to Dr. Vickey Fisher of [employer] [facility] at [facility]. CT scan of the chest, abdomen and pelvis were subsequently ordered. Those imaging studies were completed on June 10 and revealed evidence of a left basilar pulmonary embolism, along with the pancreatic head mass. Therefore, the patient was referred back to the emergency department for further evaluation and treatment of her PE. The patient denies a history of prior venous thromboembolic disease. She currently denies any shortness of breath or chest pain. On presentation to the emergency department, the patient was noted to be afebrile, hemodynamically stable and maintaining appropriate oxygen saturations on room air. Initial laboratory evaluation was largely unremarkable. The case was discussed with Dr. Morales of radiology with regards to the need for percutaneous needle biopsy of the pancreatic head mass. There are currently tentative plans for the patient to undergo a biopsy sometime tomorrow. Therefore, the plan has been to start the patient on a continuous heparin infusion in the interim. We were asked to weigh in on the need for potential IVC filter placement. Past Medical History Allergies No Known Allergies Allergy (Verified 06/12/18 09:37) Home Medications: Ambulatory Orders Medication Instructions Recorded Norethindrone Acetate 10 mg PO DAILY 05/16/18 Aspirin [Aspirin, Baby] 81 mg PO DAILY@0800 06/12/18 Smoking Status: Never smoker Review of Systems Constitutional: Denies: Chills, Fever, Weight Change HEENT: Denies: Head Aches, Sinus Congestion, Sinus Drainage Cardiovascular: Denies: Chest Pain, Palpitations Respiratory: Denies: Cough, Shortness of breath at rest, Sputum production Gastrointestinal: Denies: Abdominal Pain, Nausea, Vomiting Genitourinary: Denies: Dysuria Musculoskeletal: Denies: Joint Pain, Joint Tenderness Skin: Denies: Rash, Wounds Neurological: Denies: Numbness, Tingling, Focal weakness Psychiatric: Denies: Anxiety, Depression, Homicidal Ideations, Suicidal Ideations Hematologic/ Lymphatic: Reports: Hx of blood clot Objective: The patient's most recent lab work, culture data and imaging studies have all been personally reviewed. - Physical Exam General: Alert, Oriented x3, Cooperative, No apparent distress HEENT: Atraumatic, PERRLA, Normocephalic Oral: Moist Mucosa, No Gingival or Mucosal Lesions/ Ulcerations Neck: Supple, No Nodes, Trachea Midline Lungs: Normal air movement, No rhonchi, No wheeze, No rales Cardiovascular: Regular rate, Regular Rhythm, Normal S1, Normal S2, No murmurs Abdomen: Bowel Sounds Present, Soft, Non Tender, Obese Extremities: No clubbing, No cyanosis, No edema Skin: No rashes, No breakdown Musculoskeletal: No Tenderness to Palpation of Joints or Extremities, No Muscle Wasting Lymphatic: No Cervical, Supraclavicular, or Inguinal Adenopathy Neurological: Cranial nerves II-XII grossly intact, Neuro grossly intact Psych/Mental Status: Alert and oriented to time, place, person, mood and affect Vital Signs Temp Pulse Resp BP Pulse Ox 36.4 C L 80 16 132/84 H 95 06/12/18 09:37 06/12/18 11:26 06/12/18 11:26 06/12/18 11:26 06/12/18 11:26 Oxygen Delivery Method Room Air Weight: 245 lb Body Mass Index (BMI) 40.7 Laboratory Tests Past 24 Hrs 06/12/18 06/12/18 06/12/18 10:00 10:00 10:00 WBC 4.2 L RBC 4.25 Hgb 13.1 Hct 37.9 MCV 89.2 MCH 30.8 MCHC 34.6 RDW 13.5 RDW Differential 43.2 Plt Count 287 MPV 9.7 Immature Gran % (Auto) 0.000 Neut % (Auto) 50.1 Lymph % (Auto) 37.1 [place] % (Auto) 7.8 Eos % (Auto) 4.5 Baso % (Auto) 0.5 Absolute Neuts (auto) 2.1 Absolute Lymphs (auto) 1.56 Total Counted Not Reportable PT 13.0 INR 1.0 APTT 29.7 Sodium 141 Potassium 3.7 Chloride 106 Carbon Dioxide 27.0 Anion Gap 8 BUN 8 Creatinine 0.79 Estim Creat Clear Calc 79.22 Est GFR (MDRD) Af Amer 101 Est GFR (MDRD) Non-Af 83 BUN/Creatinine Ratio 10.2 Glucose 110 H Calcium 9.1 Total Bilirubin 0.40 AST 27 ALT 23 Alkaline Phosphatase 52 Total Protein 7.9 Albumin 4.1 Globulin 3.8 Albumin/Globulin Ratio 1.1 Urine Color Urine Clarity Urine pH Ur Specific [place] Urine Protein Urine Glucose (UA) Urine Ketones Urine Occult Blood Urine Nitrite Urine Bilirubin Urine Urobilinogen Ur Leukocyte Esterase Urine RBC Urine WBC Ur Squamous Epith Cells Urine Bacteria Urine Mucus 06/12/18 10:00 WBC RBC Hgb Hct MCV MCH MCHC RDW RDW Differential Plt Count MPV Immature Gran % (Auto) Neut % (Auto) Lymph % (Auto) [place] % (Auto) Eos % (Auto) Baso % (Auto) Absolute Neuts (auto) Absolute Lymphs (auto) Total Counted PT INR APTT Sodium Potassium Chloride Carbon Dioxide Anion Gap BUN Creatinine Estim Creat Clear Calc Est GFR (MDRD) Af Amer Est GFR (MDRD) Non-Af BUN/Creatinine Ratio Glucose Calcium Total Bilirubin AST ALT Alkaline Phosphatase Total Protein Albumin Globulin Albumin/Globulin Ratio Urine Color Yellow Urine Clarity Clear Urine pH 6.0 Ur Specific [place] 1.010 Urine Protein Negative Urine Glucose (UA) Normal Urine Ketones Negative Urine Occult Blood Negative Urine Nitrite Negative Urine Bilirubin Negative Urine Urobilinogen Normal Ur Leukocyte Esterase 25 H Urine RBC 0-5 SEEN Urine WBC 0-5 SEEN Ur Squamous Epith Cells 0-5 SEEN Urine Bacteria 1+ Urine Mucus 0 SEEN Assessment/Plan RECOMMENDATIONS: 1. Continue heparin drip in preparation for planned biopsy procedure tomorrow. 2. Send hypercoagulable workup prior to initiating anticoagulation. 3. Would favor transitioning to Lovenox once the patient's procedural workup has been completed. IMPRESSIONS: 1. Pulmonary embolism The patient was recently diagnosed with a pulmonary embolism in the setting of a newly diagnosed endometrial adenocarcinoma. She has yet to be started on an anticoagulation regimen. Given the need to obtain a tissue biopsy of the pancreatic mass noted on CT abdomen/pelvis, agree with starting a heparin infusion, while awaiting completion of the procedure. Would plan to send a hypercoagulable workup prior to the initiation of the patient's anticoagulation regimen. Would favor transitioning to Lovenox after the patient's procedure workup has been completed. There is no indication for IVC filter placement, as the patient does not have a contraindication to systemic anticoagulation. 2. Newly diagnosed endometrial adenocarcinoma/pancreatic head mass/adenopathy Tentative plans for the patient to undergo a percutaneous needle biopsy tomorrow in radiology. The patient's heparin will need to be placed on hold prior to the procedure accordingly. 3. Obesity Complicates care, management, recovery and prognosis. Weight loss through dietary modification and a graded exercise regimen is strongly encouraged. This note was generated with [employer] dictation software. It may contain incorrect words, spelling, and punctuation that were not noted in checking the note before signing. Code Visit Inpatient E&M: 91072 Init Hosp L2
[2018-06-12] MEDS: 0.9% NaCl Peripheral Flush Adult/Peds IV (12:53)
--- NOTE | 2018-06-12 18:32 | NURSING ---
Reviewed and agreed on all charting with Elizabeth Grissom RN
[2018-06-12 19:56] LABS: Partial Thromboplast Time 128.9 Seconds (24.1-36.2)
--- NOTE | 2018-06-12 20:40 | HP.PCM_ITS ---
Problem List (1) Pulmonary embolism Status: Acute Qualifiers: Pulmonary embolism type: other Chronicity: acute Acute cor pulmonale presence: without acute cor pulmonale Qualified Code(s): I26.99 - Other pulmonary embolism without acute cor pulmonale History of Present Illness Date of Admission: 06/12/18 Chief Complaint: Acute pulmonary embolism The patient is a 48 year old F who was seen and examined today in the emergency room at [facility] after being instructed to go there by her oncological [employer] physician. Patient underwent a hysterectomy approximately 4 weeks ago, pathology revealed that she had uterine cancer. The surgery was done at [facility]. She had had a chest CT with contrast ordered as well as an abdominal CT with contrast ordered, these were performed on 06/10/18, and she was informed by her physician today that she had a pulmonary embolus and was told to go to the emergency room for evaluation. Patient denied any shortness of breath, chest pain, cough, sputum production, or hemoptysis. She also denied any lightheadedness or presyncopal/syncopal episodes. Results of the CT of the chest and abdomen revealed that the patient had a left- sided pulmonary embolus, she also had evidence of a mass on her right kidney as well as an area which appeared to be a neoplasm near the head of the pancreas and was probably a cluster of enlarged lymph nodes with neoplasm in that area. Her physician who I talked with by phone requested that the patient undergo biopsy of the pancreatic area mass and possibly a biopsy of the renal mass, he had also contacted the radiologist here at [facility] discussed the case and received approval that the patient would undergo this procedure here if the patient was admitted to the hospital. Lab obtained in the emergency room showed a slightly low white blood cell count 4.2, chemistry profile was unremarkable except for a glucose of 110, urinalysis was performed which showed +1 bacteria, 0-5 RBCs, 0-5 WBCs, and elevated leukocyte esterase at 25. At the time of my examination, patient was not tachycardic, her pulse ox on room air was 96%, she did not appear to be in any distress whatsoever. I talked with her and her in the emergency room and she agreed to be admitted here. I also talked with the emergency room physician Dr. Sauer about the case. Patient will be admitted to PCU with a diagnosis of acute pulmonary embolism and right renal and pancreatic area mass, she will be placed on IV heparin, seen by pulmonary medicine, and will undergo biopsy of the mass in the pancreatic area tomorrow. Past Medical History Allergies No Known Allergies Allergy (Verified 06/12/18 09:37) Home Medications: Ambulatory Orders Medication Instructions Recorded Norethindrone Acetate 10 mg PO DAILY 05/16/18 Aspirin [Aspirin, Baby] 81 mg PO DAILY@0800 06/12/18 Surgical History: hysterectomy, - - , left foot surgery Psychiatric History: No pertinent psych hx [employer] History: endometrial cancer Lives: Spouse/ Significant Other Smoking Status: Never smoker Tobacco Use: Non-smoker Alcohol: None Drugs: None - *Family History Paternal History Items: Diabetes Maternal History Items: No pertinent history Review of Systems Constitutional: Denies: Anorexia, Chills, Fever, Night Sweats, Malaise, Weakness, Weight Change, Fatigue Eyes: Denies: Blurred vision, Cataracts, Conjunctivae Inflammation, Double vision, Drainage HEENT: Denies: Difficulty Swallowing, Dysphasia, Ear Pain, Eye Pain, Head Aches, Hearing Changes, Nasal bleeding, Nasal Congestion Cardiovascular: Denies: Chest Pain, Claudication, Chest Pressure, Chest Tightness, Edema, Heaviness, Light Headedness, Palpitations Respiratory: Denies: Cough, Hemoptysis, Pleuritic Pain, Shortness of Breath, Shortness of breath at rest, Shortness of breath upon exertion, Sputum production, Wheezing Gastrointestinal: Denies: Abdominal Pain, Constipation, Diarrhea, Hematemesis, Hematochezia, Nausea, Melena, Vomiting Genitourinary: Denies: Dysuria, Frequency, Hematuria, Hesitancy, Incontinence, Nocturia, Urgency Musculoskeletal: Denies: Back Pain, Foot Pain, Hand Pain, Joint Pain, Joint stiffness, Joint swelling, Joint Tenderness, Leg Pain Skin: Denies: Dryness, Pruritis, Rash Neurological: Denies: Balance problems, Blurred vision, Double vision, Slurred speech, Difficulty swallowing, Focal weakness, Headaches, Incoordination, Numbness, Tingling Psychiatric: Denies: Anxiety, Depression, Homicidal Ideations, Suicidal Ideations Endocrine: Denies: Change in Body Habitus, Heat/ Cold Intolerance, Polydipsia, Polyuria Hematologic/ Lymphatic: Denies: Adenopathy, Anemia, Easy Bruising, Easy Bleeding, Petechiae, Purpura VTE Information - Inpt Only VTE Present on Admission: Yes VTE Mechan Device Prophylaxis: None VTE Pharm Prophylaxis ordered?: No Reason prophylaxis not ordered:: Treatment Not Indicated - Patient admitted with acute VTE Patient Problems: Active and Suspected Problems Pulmonary embolism (Acute) - Physical Exam General: Alert, Oriented x3, Cooperative, No apparent distress, Well developed, Well nourished HEENT: Atraumatic, PERRLA, EOMI, Normocephalic Neck: Supple, No JVD, Negative Carotid Bruits, No Nuchal Rigidity, Trachea Midline, Thyroid Normal Size and Texture Lungs: Clear to auscultation, Normal air movement, No rhonchi, No wheeze, No rales Cardiovascular: Regular rate, Regular Rhythm, Normal S1, Normal S2, No murmurs, No Ectopic Activity, PMI Normal, No rub noted, No Gallop Abdomen: Bowel Sounds Present, Soft, Non Tender, Non-Distended, No hernias noted Extremities: No clubbing, No cyanosis, No edema, Capillary Refill Less than 3 Seconds Skin: No rashes, No breakdown Musculoskeletal: No Tenderness to Palpation of Joints or Extremities Neurological: Cranial nerves II-XII grossly intact, Neuro grossly intact, Sensory exam intact to light touch and pain, Coordination normal Psych/Mental Status: Normal Affect, Appropriate, Alert and oriented to time, place, person, mood and affect Vital Signs Temp Pulse Resp BP Pulse Ox 98.7 F 81 18 124/72 H 97 06/12/18 20:10 06/12/18 20:10 06/12/18 20:10 06/12/18 20:10 06/12/18 20:16 Oxygen Delivery Method Room Air Weight: 108.3 kg Body Mass Index (BMI) 39.7 Intake and Output for Last 24 Hours 06/10/18 06/11/18 06/12/18 23:59 23:59 23:59 Intake Total 600 / 600 Balance 600 / 600 Laboratory Tests Past 24 Hrs 06/12/18 06/12/18 06/12/18 10:00 10:00 10:00 WBC 4.2 L RBC 4.25 Hgb 13.1 Hct 37.9 MCV 89.2 MCH 30.8 MCHC 34.6 RDW 13.5 RDW Differential 43.2 Plt Count 287 MPV 9.7 Immature Gran % (Auto) 0.000 Neut % (Auto) 50.1 Lymph % (Auto) 37.1 [place] % (Auto) 7.8 Eos % (Auto) 4.5 Baso % (Auto) 0.5 Absolute Neuts (auto) 2.1 Absolute Lymphs (auto) 1.56 Total Counted Not Reportable PT 13.0 INR 1.0 APTT 29.7 Protein C Antigen Functional Protein C Prot C Funct Activity Antithrombin III Ag Func Antithrombin III Factor V Leiden Mutat Sodium 141 Potassium 3.7 Chloride 106 Carbon Dioxide 27.0 Anion Gap 8 BUN 8 Creatinine 0.79 Estim Creat Clear Calc 79.22 Est GFR (MDRD) Af Amer 101 Est GFR (MDRD) Non-Af 83 BUN/Creatinine Ratio 10.2 Glucose 110 H Calcium 9.1 Total Bilirubin 0.40 AST 27 ALT 23 Alkaline Phosphatase 52 Total Protein 7.9 Albumin 4.1 Globulin 3.8 Albumin/Globulin Ratio 1.1 Urine Color Urine Clarity Urine pH Ur Specific [place] Urine Protein Urine Glucose (UA) Urine Ketones Urine Occult Blood Urine Nitrite Urine Bilirubin Urine Urobilinogen Ur Leukocyte Esterase Urine RBC Urine WBC Ur Squamous Epith Cells Urine Bacteria Urine Mucus Beta-2-GPI IgG Ab Beta-2-GPI IgA Ab Beta-2-GPI IgM Ab Anti-Cardiolipin IgG Ab Anti-Cardiolipin IgM Ab Factor II DNA Analysis Miscellaneous Test 06/12/18 06/12/18 06/12/18 10:00 12:55 12:55 WBC RBC Hgb Hct MCV MCH MCHC RDW RDW Differential Plt Count MPV Immature Gran % (Auto) Neut % (Auto) Lymph % (Auto) [place] % (Auto) Eos % (Auto) Baso % (Auto) Absolute Neuts (auto) Absolute Lymphs (auto) Total Counted PT INR APTT Protein C Antigen Pending Functional Protein C Pending Prot C Funct Activity Pending Antithrombin III Ag Pending Func Antithrombin III Pending Factor V Leiden Mutat Pending Sodium Potassium Chloride Carbon Dioxide Anion Gap BUN Creatinine Estim Creat Clear Calc Est GFR (MDRD) Af Amer Est GFR (MDRD) Non-Af BUN/Creatinine Ratio Glucose Calcium Total Bilirubin AST ALT Alkaline Phosphatase Total Protein Albumin Globulin Albumin/Globulin Ratio Urine Color Yellow Urine Clarity Clear Urine pH 6.0 Ur Specific [place] 1.010 Urine Protein Negative Urine Glucose (UA) Normal Urine Ketones Negative Urine Occult Blood Negative Urine Nitrite Negative Urine Bilirubin Negative Urine Urobilinogen Normal Ur Leukocyte Esterase 25 H Urine RBC 0-5 SEEN Urine WBC 0-5 SEEN Ur Squamous Epith Cells 0-5 SEEN Urine Bacteria 1+ Urine Mucus 0 SEEN Beta-2-GPI IgG Ab Pending Beta-2-GPI IgA Ab Pending Beta-2-GPI IgM Ab Pending Anti-Cardiolipin IgG Ab Pending Anti-Cardiolipin IgM Ab Pending Factor II DNA Analysis Pending Miscellaneous Test Pending 06/12/18 18:40 WBC RBC Hgb Hct MCV MCH MCHC RDW RDW Differential Plt Count MPV Immature Gran % (Auto) Neut % (Auto) Lymph % (Auto) [place] % (Auto) Eos % (Auto) Baso % (Auto) Absolute Neuts (auto) Absolute Lymphs (auto) Total Counted PT INR APTT 128.9 H* Protein C Antigen Functional Protein C Prot C Funct Activity Antithrombin III Ag Func Antithrombin III Factor V Leiden Mutat Sodium Potassium Chloride Carbon Dioxide Anion Gap BUN Creatinine Estim Creat Clear Calc Est GFR (MDRD) Af Amer Est GFR (MDRD) Non-Af BUN/Creatinine Ratio Glucose Calcium Total Bilirubin AST ALT Alkaline Phosphatase Total Protein Albumin Globulin Albumin/Globulin Ratio Urine Color Urine Clarity Urine pH Ur Specific [place] Urine Protein Urine Glucose (UA) Urine Ketones Urine Occult Blood Urine Nitrite Urine Bilirubin Urine Urobilinogen Ur Leukocyte Esterase Urine RBC Urine WBC Ur Squamous Epith Cells Urine Bacteria Urine Mucus Beta-2-GPI IgG Ab Beta-2-GPI IgA Ab Beta-2-GPI IgM Ab Anti-Cardiolipin IgG Ab Anti-Cardiolipin IgM Ab Factor II DNA Analysis Miscellaneous Test Assessment/Plan All Active Problems Pulmonary embolism (Acute) #1 acute pulmonary embolus left basilar pulmonary artery branches-probably secondary to either existing uterine carcinoma or new primary undiagnosed carcinoma, e.g. renal, pancreas-patient was admitted to PCU, she will be monitored on telemetry, she will be seen by pulmonary medicine, he will be placed on an IV heparin drip, she was given a loading dose of heparin in the emergency room. Patient's heparin drip will be stopped at 4 AM tomorrow morning and the patient will undergo a biopsy of the mass near her pancreas via CAT scan-in radiology. This will take place a proximally 9-10 AM. I discussed this plan with the radiologist today #2 right renal mass, mid abdominal mass in the vicinity of the pancreas-possibly renal cell cancer or less likely pancreatic cancer-again patient will undergo b iopsy tomorrow morning #3 recently diagnosed uterine cancer-status post hysterectomy proximally 4 weeks Code Visit Inpatient E&M: 35992 Init Hosp L3
[2018-06-13] VITALS (17 sets, daily range): BP systolic 103–138; BP diastolic 49–79; PULSE 71–160; RESP 14–19; TEMP 36.9–37.2; O2SAT 93–98
--- NOTE | 2018-06-13 | IMM_PTH ---
PATIENT: BLANCA BURDEN LOC: PCU U#:[id number] AGE/SX: 48/F ROOM: [facility] RE06/12/[address]: Dr. Rodger Milligan DO : 1970 BED: 1 DIS: 06/13/2018 SPEC #: [id number] RECD: 06/14/18 13:31 STATUS: ALVARO REQ #: [id number] DREW: 06/13/18 00:[address]: Rodger Milligan DEPT: IMMUNOHISTOCHEMISTRY RECD BY: Lisa Norman ENTERED: 06/14/18 13:35 SP TYPE: IMMUNO OTHR DR: DO Dr. Christ Roldan MD Tissues: Pancreas, NOS Procedures: Synapto (add) Thyroglobulin (add) NAPSIN A (add) CA-125 (add) CD56 (add) CEA (add) CHROMO (add) CK19 (add) CK20 (add) CK7 (add) CK8 (add) KI-67 (add) P53 (add) TTF1 (add) Vimentin (add) 34BE12 (add) Pankeratin (initial) GATA3 (add) NSE (add) PHYSICIAN & INSTITUTION [place] [id number] SPECIMEN INFORMATION: Tissue Source: Pancreatic mass, peripancreatic lymph node Clinical Info: Pancreatic mass Specimen Number: [id number] CPT code: 79044, 57640 x18 METHODOLOGY: Deparaffinized sections of prefer/formalin-fixed tissue or PAP/DQ stained slides are incubated with monoclonal/polyclonal antibodies/oligonucleotide probes. Localization is made via biotin free immunoperoxidase method. Appropriate controls are performed and reacted as expected. Results on target cell population are indicated in the following table: RESULTS: ANTIBODY / CLONE RESULT GATA3 (L50-823) negative AE1-3 (AE1/AE3/PCK26) positive CK7 (OV-TL12/30) positive, rare cells CK8 (44ohobG70) positive CK19 (A53-B/A2.26) positive CK20 (KS20.8) negative 34BE12 (34BE12) negative CEA (11-7/TF-3HB-1) negative TTF-1 (8G7G3/1) negative Napsin A (Rabbit Polyclonal) negative Thyro (2H11+6E1) negative P53 (DO-7) positive, occasional Vimentin (V9) negative CA125 (OC125) negative CD56 (123C3.D5) positive, dim Chromo (LK2H10) positive Synapto (polyclonal) positive NSE Neuron Specific Enolase positive Ki-67 (30-9) positive, low These tests were developed and their performance characteristics determined by [facility]. They may not have been cleared or approved by the U.S. Food and Drug Administration. The FDA has determined that such clearance or approval is not necessary. 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 AM:miya 06/19/18
[2018-06-13 02:57] LABS: Partial Thromboplast Time 58.4 Seconds (24.1-36.2)
--- NOTE | 2018-06-13 05:55 | CT_ITS ---
PROCEDURE: CT GUIDED biopsy of the soft tissue nodule in the peripancreatic region. DATE: June 13, 2018. INDICATION: Female, 48 years old. History of endometrial carcinoma. Right renal mass. Soft tissue mass adjacent to the pancreatic head. PHYSICIAN: Marvin Isbell M.D. RADIATION DOSAGE (If Supplied By Facility): CTDIvol = ( 18 ) mGy, DLP = ( 456.66 ) mGycm. Individualized dose optimization techniques were utilized. PROCEDURE: The risks, benefits, and alternatives to the procedure were explained to the patient. The specific risk of hemorrhage requiring further treatment or intervention was detailed and accepted. Follow-up instructions were discussed with the patient as well. Written informed consent was obtained. The patient was brought into the CT suite and placed in the supine position. . An appropriate entry site was identified. The overlying skin was prepped and draped in the usual sterile fashion. 1% lidocaine was administered subcutaneously for local anesthesia. Conscious sedation was performed. The patient received 3 mg of Versed and 75 mcg of fentanyl intravenously. Conscious sedation was started at 9:34 AM and terminated at 9:59 AM. The patient was independently monitored by the department nurse. Under CT guidance, a total of 3 passes were performed utilizing a 18 gauge core biopsy needle The specimens were then placed in upper fluid and transported to the laboratory for analysis. Hemostasis was obtained. The patient tolerated the procedure well without immediate complications. CT/Biopsy/Inj or Needle Placement IMPRESSION: Successful CT guided biopsy of the right peripancreatic mass, as described above. Electronically Signed: Marvin Isbell MD at 11:04 EST Tel [phone], Service support ,
--- NOTE | 2018-06-13 07:25 | PCM.PROGNOTE ---
Patient Problems: Active and Suspected Problems Pulmonary embolism (Acute) Subjective: The patient was seen and examined at the bedside this morning. Events from the last 24 hours have been reviewed. The patient is currently afebrile, hemodynamically stable and maintaining appropriate oxygen saturations on room air. The patient is scheduled to undergo CT-guided biopsy this morning. No overnight issues were identified. Objective: The patient's most recent lab work, culture data and imaging studies have all been personally reviewed. CT scan of the chest, abdomen and pelvis were completed on June 10 and revealed evidence of a left basilar pulmonary embolism, along with the pancreatic head mass/adenopathy. - Physical Exam General: Alert, Oriented x3, Cooperative, No apparent distress HEENT: Atraumatic, PERRLA, Normocephalic Oral: Moist Mucosa, No Gingival or Mucosal Lesions/ Ulcerations Neck: Supple, No Nodes, Trachea Midline Lungs: Normal air movement, No rhonchi, No wheeze, No rales Cardiovascular: Regular rate, Regular Rhythm, Normal S1, Normal S2, No murmurs Abdomen: Bowel Sounds Present, Soft, Non Tender, Non-Distended, Obese Extremities: No clubbing, No cyanosis, No edema Skin: No rashes, No breakdown Musculoskeletal: No Tenderness to Palpation of Joints or Extremities, No Muscle Wasting Lymphatic: No Cervical, Supraclavicular, or Inguinal Adenopathy Neurological: Cranial nerves II-XII grossly intact, Neuro grossly intact Psych/Mental Status: Alert and oriented to time, place, person, mood and affect Vital Signs Temp Pulse Resp BP Pulse Ox 36.9 C 73 18 132/77 H 98 06/13/18 02:10 06/13/18 03:00 06/13/18 02:10 06/13/18 02:10 06/13/18 02:10 Oxygen Delivery Method Room Air Weight: 238 lb 12.17 oz Body Mass Index (BMI) 39.7 Intake and Output for Last 24 Hours 06/11/18 06/12/18 06/13/18 23:59 23:59 23:59 Intake Total 1237 / 1237 47 / 47 Balance 1237 / 1237 47 / 47 Laboratory Tests Past 24 Hrs 06/12/18 06/12/18 06/12/18 10:00 10:00 10:00 WBC 4.2 L RBC 4.25 Hgb 13.1 Hct 37.9 MCV 89.2 MCH 30.8 MCHC 34.6 RDW 13.5 RDW Differential 43.2 Plt Count 287 MPV 9.7 Immature Gran % (Auto) 0.000 Neut % (Auto) 50.1 Lymph % (Auto) 37.1 [place] % (Auto) 7.8 Eos % (Auto) 4.5 Baso % (Auto) 0.5 Absolute Neuts (auto) 2.1 Absolute Lymphs (auto) 1.56 Total Counted Not Reportable PT 13.0 INR 1.0 APTT 29.7 Protein C Antigen Functional Protein C Prot C Funct Activity Antithrombin III Ag Func Antithrombin III Factor V Leiden Mutat Sodium 141 Potassium 3.7 Chloride 106 Carbon Dioxide 27.0 Anion Gap 8 BUN 8 Creatinine 0.79 Estim Creat Clear Calc 79.22 Est GFR (MDRD) Af Amer 101 Est GFR (MDRD) Non-Af 83 BUN/Creatinine Ratio 10.2 Glucose 110 H Calcium 9.1 Total Bilirubin 0.40 AST 27 ALT 23 Alkaline Phosphatase 52 Total Protein 7.9 Albumin 4.1 Globulin 3.8 Albumin/Globulin Ratio 1.1 Urine Color Urine Clarity Urine pH Ur Specific [place] Urine Protein Urine Glucose (UA) Urine Ketones Urine Occult Blood Urine Nitrite Urine Bilirubin Urine Urobilinogen Ur Leukocyte Esterase Urine RBC Urine WBC Ur Squamous Epith Cells Urine Bacteria Urine Mucus Beta-2-GPI IgG Ab Beta-2-GPI IgA Ab Beta-2-GPI IgM Ab Anti-Cardiolipin IgG Ab Anti-Cardiolipin IgM Ab Factor II DNA Analysis Miscellaneous Test 06/12/18 06/12/18 06/12/18 10:00 12:55 12:55 WBC RBC Hgb Hct MCV MCH MCHC RDW RDW Differential Plt Count MPV Immature Gran % (Auto) Neut % (Auto) Lymph % (Auto) [place] % (Auto) Eos % (Auto) Baso % (Auto) Absolute Neuts (auto) Absolute Lymphs (auto) Total Counted PT INR APTT Protein C Antigen Pending Functional Protein C Pending Prot C Funct Activity Pending Antithrombin III Ag Pending Func Antithrombin III Pending Factor V Leiden Mutat Pending Sodium Potassium Chloride Carbon Dioxide Anion Gap BUN Creatinine Estim Creat Clear Calc Est GFR (MDRD) Af Amer Est GFR (MDRD) Non-Af BUN/Creatinine Ratio Glucose Calcium Total Bilirubin AST ALT Alkaline Phosphatase Total Protein Albumin Globulin Albumin/Globulin Ratio Urine Color Yellow Urine Clarity Clear Urine pH 6.0 Ur Specific [place] 1.010 Urine Protein Negative Urine Glucose (UA) Normal Urine Ketones Negative Urine Occult Blood Negative Urine Nitrite Negative Urine Bilirubin Negative Urine Urobilinogen Normal Ur Leukocyte Esterase 25 H Urine RBC 0-5 SEEN Urine WBC 0-5 SEEN Ur Squamous Epith Cells 0-5 SEEN Urine Bacteria 1+ Urine Mucus 0 SEEN Beta-2-GPI IgG Ab Pending Beta-2-GPI IgA Ab Pending Beta-2-GPI IgM Ab Pending Anti-Cardiolipin IgG Ab Pending Anti-Cardiolipin IgM Ab Pending Factor II DNA Analysis Pending Miscellaneous Test Pending 06/12/18 06/13/18 18:40 02:35 WBC RBC Hgb Hct MCV MCH MCHC RDW RDW Differential Plt Count MPV Immature Gran % (Auto) Neut % (Auto) Lymph % (Auto) [place] % (Auto) Eos % (Auto) Baso % (Auto) Absolute Neuts (auto) Absolute Lymphs (auto) Total Counted PT INR APTT 128.9 H* 58.4 H Protein C Antigen Functional Protein C Prot C Funct Activity Antithrombin III Ag Func Antithrombin III Factor V Leiden Mutat Sodium Potassium Chloride Carbon Dioxide Anion Gap BUN Creatinine Estim Creat Clear Calc Est GFR (MDRD) Af Amer Est GFR (MDRD) Non-Af BUN/Creatinine Ratio Glucose Calcium Total Bilirubin AST ALT Alkaline Phosphatase Total Protein Albumin Globulin Albumin/Globulin Ratio Urine Color Urine Clarity Urine pH Ur Specific [place] Urine Protein Urine Glucose (UA) Urine Ketones Urine Occult Blood Urine Nitrite Urine Bilirubin Urine Urobilinogen Ur Leukocyte Esterase Urine RBC Urine WBC Ur Squamous Epith Cells Urine Bacteria Urine Mucus Beta-2-GPI IgG Ab Beta-2-GPI IgA Ab Beta-2-GPI IgM Ab Anti-Cardiolipin IgG Ab Anti-Cardiolipin IgM Ab Factor II DNA Analysis Miscellaneous Test Medical Necessity - Tobacco Use Smoking Status: Never smoker Tobacco Use: Non-smoker Assessment/Plan All Active Problems Pulmonary embolism (Acute) RECOMMENDATIONS: 1. Continue heparin drip in preparation for planned biopsy procedure today 2. Hypercoagulable panel is pending. 3. Would favor transitioning to Lovenox once the patient's procedural workup has been completed. 4. Perform walking oximetry study prior to consideration for discharge from the hospital. 5. The patient can follow-up in the pulmonary medicine clinic for further management of her underlying pulmonary embolism. IMPRESSIONS: 1. Pulmonary embolism The patient was recently diagnosed with a pulmonary embolism in the setting of a newly diagnosed endometrial adenocarcinoma. The patient was admitted to the hospital and started on a heparin drip, in preparation for a planned CT-guided biopsy. The procedure should be completed later this morning. Following the completion of the procedure, would recommend transitioning the patient to Lovenox for definitive treatment of her underlying pulmonary embolism. The patient's hypercoagulable panel is currently pending. There is no indication for IVC filter placement, as the patient does not have a contraindication to systemic anticoagulation. Would plan to perform a walking oximetry study prior to consideration for discharge from the hospital. The patient can follow-up in the pulmonary medicine clinic within 2 weeks of her discharge from the hospital. 2. Newly diagnosed endometrial adenocarcinoma/pancreatic head mass/adenopathy Tentative plans for the patient to undergo a percutaneous needle biopsy tomorrow in radiology. The patient's heparin will need to be placed on hold prior to the procedure accordingly. 3. Obesity Complicates care, management, recovery and prognosis. Weight loss through dietary modification and a graded exercise regimen is strongly encouraged. This note was generated with [employer] dictation software. It may contain incorrect words, spelling, and punctuation that were not noted in checking the note before signing. DISPOSITION: Given the lack of ongoing pulmonary needs, will sign off. Please call with any additional questions. Code Visit Inpatient E&M: 20488 Subs Hosp L2
[2018-06-13] MEDS: fentaNYL 100 MCG/2 ML Ampul IV ×2 (09:33→09:54)
[2018-06-13] MEDS: Midazolam 2 MG/2 ML Syringe IV ×2 (09:34→09:54)
--- NOTE | 2018-06-13 09:55 | ASPIGT_PTH ---
PATIENT: BLANCA BURDEN LOC: [facility] U#:[id number] AGE/SX: 48/F ROOM: [facility] RE06/12/[address]: Dr. Rodger Milligan DO : 1970 BED: 1 DIS: 06/13/2018 SPEC #: [id number] RECD: 06/13/18 10:47 STATUS: ALVARO REQ #: [id number] DREW: 06/13/18 09:[address]: Rodger Milligan DEPT: SURGICAL PATHOLOGY RECD BY: Rubin Lopez ENTERED: 06/13/18 10:48 SP TYPE: ASP RAD OTHR DR: DO Dr. Christ Roldan MD Tissues: Pancreas, NOS Procedures: FNA Specimen Adequacy Special Stain Group II Surgery Specimen Level IV Diff Quik Stain (control) Imprint (control) HEADER OPERATION: CT-guided biopsy, pancreatic mass PRE-OP DIAGNOSIS: Pancreatic mass TISSUE SUBMITTED: Pancreatic mass 18g core x3, peripancreatic lymph node MICROSCOPIC DIAGNOSIS Peripancreatic mass, CT-guided core biopsy: Neuroendocrine carcinoma. AM:miya 06/19/18 COMMENT The specimen is evaluated at the time of CT-guided biopsy by Dr. Leavitt. Immediate Evaluation = Negative for definite malignant cells. Immunohistochemistry ([id number]) supports the above diagnosis. Clinical correlation is suggested. Case was discussed with Dr. Olsen on 06/27/18 at 10:[address] Vang. Case has been reviewed in consultation with Dr. Leavitt who concurs with the above diagnosis. IDC:CANDIDA MICROSCOPIC DESCRIPTION Slides are reviewed. GROSS DESCRIPTION Received in fixative is one container labeled with the patient's name and designated peripancreatic mass/lymph node, CT-guided core biopsy. The specimen consists of multiple elongated fragments of couch soft tissue that in aggregate measure 2 x 0.1 x 0.1 cm. The entire specimen is submitted in one cassette. One touch imprint is prepared at the time of core biopsy. / CANDIDA:miya 06/13/18 TC:0 CPT: 72646
--- NOTE | 2018-06-13 12:00 | CASEMGMT ---
JONATHON ALLEN assessment: Face to Face with patient for initial transition planning/care coordination assessment. JONATHON ALLEN introduced self and role at [facility], voices understanding and consents to assessment at this time. Pt is lying in bed in no distress at this time. Pt is A/Ox4 at this time and answers all questions appropriately at this time. Pt's is at bedside during assessment. Care providers, pharmacy, and demographics verified at this time. PCP: Jonah Specialists: [facility] clinical nursing assistant onc in [facility] Pharmacy: Jose Guerrero Insurance: [employer] Prescription Benefit: [employer] Living Will/HPOA: Pt states has a LW but not HPOA, but LW is not on file at [facility] at this time. LNOK: Nader Simpson, Living Arrangements: Pt states lives with in 2 story home and states no concerns at home at this time. 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 DME/HHC: Pt states no current DME or need for any at this time. Pt states no hx of HHC or SNF in the past. Pt states no concerns with going home at time of discharge. Pt states does not smoke or drink ETOH. Pt states no further concerns/needs at this time. CM to follow for anti-coagulant pricing and any further discharge planning/needs. Advised pt/ to ask for CM if any further questions/concerns/needs arise, voices understanding. Plan: [place] JONATHON ALLEN
[2018-06-13] MEDS: Enoxaparin 120 MG/0.8 ML Syringe 110 MG SC (12:51)
--- NOTE | 2018-06-13 14:12 | NURSING ---
Student nurse charting reviewed and appropriate.
--- NOTE | 2018-06-13 14:17 | NURSING ---
Reviewed and agreed on all charting with Elizabeth Grissom RN
--- NOTE | 2018-06-13 14:31 | DCINST_ITS ---
- Discharge Diagnoses Current Active Problems: Current Active and Chronic Problems Pulmonary embolism (Acute) You will use the following diet at home:: No restrictions Your food should be the consistency of: Regular Your liquids should be the consistency of: Regular/Thin Discharge Activity: Return to Normal Activity Weight Bearing Status: Full weight bearing Additional Instructions: avoid using ibuprofen or Alleve-use tylenol for pain Allergies/Adverse Reactions: Allergies No Known Allergies Allergy (Verified 06/12/18 09:37) Medications to take at Discharge Acetaminophen [Tylenol Tablet] 650 mg PO Q6H PRN PRN tablet 06/13/18 Enoxaparin [Lovenox] 110 mg SUBCUT BID #60 syringe 06/13/18 The following prescriptions were given: Enoxaparin [Lovenox] 110 mg SUBCUT BID #60 syringe Primary Care Physician: Christ Mckenzie [Primary Care Provider] - Please follow up with your Primary Care Physician in: next week Test Results: Test results from this visit will be discussed in further detail at your follow- up appointment, if applicable. Please Follow Up With: Nader Finley MD When: in 10 days if you have not heard from him by then
--- NOTE | 2018-06-14 08:54 | PCM.DC.SUM ---
Discharge Date and Diagnosis Date of Admission: 06/12/18 Date of Discharge: 06/13/18 - Primary Discharge Diagnosis #1 acute pulmonary embolus left basilar pulmonary artery branches-probably secondary to either existing uterine carcinoma or new primary undiagnosed carcinoma, e.g. renal, pancreas #2 right renal mass, mid abdominal mass in the vicinity of the pancreas-possibly renal cell cancer or less likely pancreatic cancer #3 recently diagnosed uterine cancer Hospital Course and Treatment Operations: None Procedures: - - CT-guided needle biopsy of abdominal mass Summary of Care Provided: The patient is a 48 year old F who was seen in the emergency room at [facility] after being directed there by her oncological gynecological surgeon. Patient had a hysterectomy performed approximately 3 weeks prior and this showed uterine cancer, she was referred to an oncological gynecological surgeon in [place] who ordered a chest CT and abdominal CT on the patient on 06/10/18. This resulted as showing a pulmonary embolism in the left pulmonary basilar pulmonary artery as well as an abnormality on the patient's CT of her abdomen showing a right renal mass and a mass around the head of the pancreas. Patient was admitted from the emergency room to PCU after being bolused with IV heparin, she was maintained on a heparin drip on PCU and seen by pulmonary medicine who recommended using Lovenox as an outpatient for treatment of the pulmonary embolus. Patient underwent a needle biopsy of her abdominal mass near the pancreas and then was placed on Lovenox on 06/13/18. On 06/13/18, patient was seen and examined: On examination she appeared in good health and spirits. Vital signs as documented. Skin warm and dry and without overt rashes. Neck without JVD. Lungs clear. Heart exam notable for regular rhythm, normal sounds and absence of murmurs, rubs or gallops. Abdomen unremarkable and without evidence of organomegaly, masses, or abdominal aortic enlargement. Extremities nonedematous. Neuro: Cranial nerves II through XII are grossly intact, no focal motor deficits were noted. Psych: Patient is alert and oriented x3, she does not appear anxious or depressed. On 06/13/18, patient was seen and examined and felt to be stable for discharge home, she was to follow-up with her gynecological surgeon here in [place] and her PCP. - Physical Exam Vital Signs Temp Pulse Resp BP Pulse Ox 98.8 F 77 16 138/78 H 95 06/13/18 13:02 06/13/18 13:02 06/13/18 13:02 06/13/18 13:02 06/13/18 13:02 Oxygen Delivery Method [6] Room Air Oxygen Delivery Method [5] Room Air Oxygen Delivery Method [4] Room Air Oxygen Delivery Method [3] Room Air Oxygen Delivery Method [2] Room Air Oxygen Delivery Method [1 ( Room Air Initial Baseline)] Oxygen Delivery Method Room Air Weight: 108.3 kg Body Mass Index (BMI) 39.7 Intake and Output for Last 24 Hours 06/12/18 06/13/18 06/14/18 23:59 23:59 23:59 Intake Total 1237 / 1237 447 / 447 Balance 1237 / 1237 447 / 447 Discharge Activity: Return to Normal Activity Weight Bearing Status: Full weight bearing Home Medications: Medications to take at Discharge Acetaminophen [Tylenol Tablet] 650 mg PO Q6H PRN PRN tablet 06/13/18 Enoxaparin [Lovenox] 110 mg SUBCUT BID #60 syringe 06/13/18 Following Prescrptions Were Given to Patient: Enoxaparin [Lovenox] 110 mg SUBCUT BID #60 syringe Primary Care Physician: Christ Mckenzie [Primary Care Provider] - Please follow up with your Primary Care Physician in: next week Please Follow Up With: Nader Finley MD When: in 10 days if you have not heard from him by then Disposition: Home Minutes spent on discharge:: 32 Patient Condition:: Stable Medical Necessity - Tobacco Use Smoking Status: Never smoker Tobacco Use: Non-smoker Meaningful Use Info Meaningful Use Diagnoses (Choose all that apply): VTE - VTE Anticoag overlap given w/in hospital stay or rx'd at dc?: No Pt receive overlap for 5 days?: No Reason overlap not ordered, prescribed, or given for 5 days: Treatment Not Indicated - Patient was placed on Lovenox Code Visit Inpatient E&M: 32101 Disch Hosp
[2018-06-19 15:22] LABS: Protein C Antigen 144 % (60-150); Protein C, Functional 157 % (73-180)
[2018-06-20 07:37] LABS: Anti-Cardiolipin Ab, IgG, Qn < 9 GPL U/mL (0-14); Anti-Cardiolipin Ab, IgM, Qn 9 MPL U/mL (0-12); Anti-Thrombin 3 AG, Immunol 96 % (72-124); Antithrombin 3 Function 119 % (75-135); Beta-2-Glycoprotein I IgA <9 (0-25); Beta-2-Glycoprotein I IgG <9 (0-20); Beta-2-Glycoprotein I IgM <9 (0-32)
== END 2018-06-13 15:44 | disposition home or self-care (01) | DRG 176 ==
LOC: ED 09:57 → PCU 11:21
PROVIDERS: Internal Medicine Critical Care Medicine; Admitting Provider Internal Medicine; Emergency Provider Emergency Medicine; Family Provider Family Medicine; PCP Family Medicine; Visit Provider Internal Medicine
DX: I26.99 Other pulmonary embolism without acute cor pulmonale (principal); Z90.710 Acquired absence of both cervix and uterus; C54.1 Malignant neoplasm of endometrium; E66.9 Obesity, unspecified; N28.9 Disorder of kidney and ureter, unspecified; Z68.39 Body mass index [BMI] 39.0-39.9, adult; C80.1 Malignant (primary) neoplasm, unspecified
CPT/HCPCS: 36415; 77012; 80053; 81001; 81240; 81241; 85025; 85300; 85301; 85302; 85303; 85610; 85730; 86146; 86147; 88172; 88305; 88309; 88313; 88341; 88342; 99157; 99283; J7040; A4216